=== PATIENT | female | born 1985 | race African-American/Black ===

== ENCOUNTER 2017-03-15 14:11 | Emergency (ER) | payer SELFPAY ==
[2017-03-15] MEDS ORDERED: Dexamethasone 4 mg/ml Vial ONE (14:22)
== END 2017-03-15 15:40 | disposition home or self-care (01) ==
LOC: ERS 14:11
DX: R06.2 Wheezing (principal); I10 Essential (primary) hypertension; F17.210 Nicotine dependence, cigarettes, uncomplicated; Z79.899 Other long term (current) drug therapy
CPT/HCPCS: 94640; J1100; J7620

== ENCOUNTER 2017-04-30 10:38 | Emergency (ER) | payer SELFPAY ==
[2017-04-30 11:15] LABS: Bilirubin Small (Negative); Blood, Urine Moderate (Negative); Glucose, Urine (Dipstick) Negative (Negative); Ketone, Urine Trace mg/dL (Negative); Nitrite Negative (Negative); Protein, Urine (Dipstick) > or equal to 300 mg/dL (Neg-Trace)
[2017-04-30 11:27] LABS: Bacteria/HPF 2+ HPF (None Seen); RBC/HPF 0-3 HPF (0-3)
[2017-04-30 11:28] LABS: Hyaline Casts/LPF NONE SEEN LPF (0-3 Hyaline)
[2017-04-30 11:47] LABS: #Basophils 0.1 thou/uL (0.0-0.2); #Lymphocytes 1.1 thou/uL (1.20-3.40); #Monocytes 1.1 thou/uL (0.11-0.59); #Neutrophils 6.7 thou/uL (1.40-6.50); %Basophils 0.7 % (0.0-1.0); %Monocytes 11.8 % (0.0-10.0); Hematocrit 46.5 % (36.0-47.0); Red Blood Cell (RBC) Count 4.96 mill/uL (4.20-5.40); White Blood Cell (WBC) Count 8.9 thou/uL (4.8-10.8)
[2017-04-30 12:03] LABS: ALT (SGPT) 35 U/L (8-55); AST (SGOT) 58 U/L (5-34); Alkaline Phosphatase 45 U/L (40-150); Anion Gap 16 mmol/L (10-20); BUN (Urea Nitrogen) 12 mg/dL (7.0-18.7); Bilirubin, Total 0.3 mg/dL (0.2-1.2); Calc. Creatinine Clearance 0 mL/min (70-130); Calcium 9.1 mg/dL (7.8-10.44); Carbon Dioxide 26 mmol/L (22-29); Chloride 99 mmol/L (98-107); Estimated GFR-MDRD Greater than 90; Globulin 3.4 g/dL (2.4-3.5); Protein, Total 7.8 g/dL (6.0-8.3)
[2017-04-30] MEDS ORDERED: Potassium Chloride 20 MEQ TAB ONE (12:09)
== END 2017-04-30 12:10 | disposition home or self-care (01) ==
LOC: ERS 10:38
DX: E86.0 Dehydration (principal); I10 Essential (primary) hypertension; F17.210 Nicotine dependence, cigarettes, uncomplicated; Z79.899 Other long term (current) drug therapy
CPT/HCPCS: 36415; 80053; 81003; 81015; 81025; 85025; 96361; 96374

== ENCOUNTER 2017-08-04 10:58 | Emergency (ER) | payer SELFPAY ==
[2017-08-04 11:31] LABS: #Lymphocytes 1.7 thou/uL (1.20-3.40); #Monocytes 0.5 thou/uL (0.11-0.59); #Neutrophils 4.5 thou/uL (1.40-6.50); %Basophils 0.3 % (0.0-1.0); %Eosinophils 0.3 % (0.0-10.0); %Lymphocytes 24.7 % (21.0-51.0); %Monocytes 7.2 % (0.0-10.0); %Neutrophils 67.5 % (42.0-75.0); Hemoglobin 14.2 g/dL (12.0-16.0); Mean Corpuscular HGB CONC 34.5 g/dL (32.0-36.0); Mean Corpuscular Hemoglobin 32.2 pg (27.0-31.0); Mean Corpuscular Volume 93.2 fl (81.0-99.0); Mean Platelet Volume 6.3 fL (7.4-10.4); Platelet Count 316 thou/uL (130-400); RBC Distribution Width 12.5 % (11.5-14.5); White Blood Cell (WBC) Count 6.7 thou/uL (4.8-10.8)
[2017-08-04 11:35] LABS: BHCG - Serum POSITIVE (NEGATIVE); Pregs Control Background? CLEAR/WHITE (CLR/WHITE); Pregs Control Bar Appear? YES (CONTROL BAR)
[2017-08-04 11:55] LABS: ALT (SGPT) 11 U/L (8-55); AST (SGOT) 26 U/L (5-34); Albumin 4.7 g/dL (3.5-5.0); Alkaline Phosphatase 51 U/L (40-150); Anion Gap 14 mmol/L (10-20); BUN (Urea Nitrogen) 5 mg/dL (7.0-18.7); Bilirubin, Total 0.7 mg/dL (0.2-1.2); Calc. Creatinine Clearance 0 mL/min (70-130); Calcium 9.8 mg/dL (7.8-10.44); Carbon Dioxide 21 mmol/L (22-29); Chloride 104 mmol/L (98-107); Estimated GFR-MDRD Greater than 90; Globulin 3.2 g/dL (2.4-3.5); Glucose 97 mg/dL (70-105); Lipase 80 U/L (8-78); Potassium 3.3 mmol/L (3.5-5.1); Protein, Total 7.9 g/dL (6.0-8.3); Sodium 136 mmol/L (136-145)
[2017-08-04 13:26] LABS: Bilirubin Moderate (Negative); Blood, Urine Large (Negative); Clarity CLEAR (Clear); Glucose, Urine (Dipstick) Negative (Negative); Leukocyte Small (Negative); Nitrite Negative (Negative); Protein, Urine (Dipstick) 100 mg/dL (Neg-Trace); Specific Gravity, Urine 1.028 (1.002-1.036)
[2017-08-04 13:30] LABS: Bacteria/HPF 1+ HPF (None Seen); Hyaline Casts/LPF NONE SEEN LPF (0-3 Hyaline); RBC/HPF GREATER THAN 50-TNTC HPF (0-3)
--- NOTE | 2017-08-04 14:23 | ULT ---
PELVIC ULTRASOUND: Technique: Transabdominal and endovaginal ultrasound of the pelvis performed. History: 31-year-old female with left pelvic pain. There is a positive test. FINDINGS: The HCG levels are reported at 3327. A gestational sac should be visible at this level of HCG. Images of the endometrium shows evidence of free fluid/blood in the endometrial cavity. There is no e vidence of gestational sac identified. Ovaries are identified. Color doppler and spectral analysis demonstrates flow to both ovaries. There is a 3 cm heterogeneous mass like area adjacent to the left ovary. There is a moderate amount o f free fluid/blood in the cul-de-sac. IMPRESSION: 1. No evidence of gestational sac. 2. Heterogeneous mass like area adjacent to the left ovary with free fluid in the cul-de-sac. Ectopic must be excluded. Findings relayed to the Emergency Room at the time of dictation. POS: [facility]
--- NOTE | 2017-08-04 20:11 | CON ---
DATE OF CONSULTATION: 08/04/2017 CONSULTING PHYSICIAN: Dr. Ashutosh Macario, Emergency Department. CHIEF COMPLAINT: Left lower quadrant pain. HISTORY OF PRESENT ILLNESS: This is a 31-year-old G4, P2-0-1-2 who presented to the emergency department with left lower quadrant abdominal pain. She reports that this pain started yesterday morning, described as sharp at first, but now only crampy. It is exacerbated by movement and is not relieved by anything. She has not tried anything for pain. She reports her last menstrual period was 07/02/2017. She had a small amount of vaginal bleeding yesterday requiring her to change her pad twice, but the bleeding stopped. She has had only spotting with urination today. She denies any nausea, vomiting, changes in bowel habits or urination. REVIEW OF SYSTEMS: Negative for head, eyes, ears, nose, throat, cardiovascular , respiratory, GI, , neuro, psych, musculoskeletal, skin or constitutional symptoms other than mentioned above. PAST MEDICAL HISTORY: Hypertension. PAST SURGICAL HISTORY: x2. MEDICATIONS: None. ALLERGIES: No known drug allergies. SOCIAL HISTORY: Negative for tobacco, alcohol, or drug abuse. PHYSICAL EXAMINATION: VITAL SIGNS: Blood pressure 149/104, pulse 92, respiratory rate 16, temperature 98.8, O2 saturation 100% on room air. GENERAL: Awake, alert, in no acute distress, appears comfortable. She was laughing and joking on exam. CHEST: Nonlabored. ABDOMEN: Soft, mildly tender to palpation of the lower abdomen. No guarding or rebound. No masses palpable. PELVIC: Deferred. LABORATORY DATA: HCG level 3327, hemoglobin 14.2, hematocrit 41.0. Urine contaminated with blood. IMAGING: Transvaginal ultrasound was performed by Radiology revealing no evidence of a gestational sac in the uterus. Both ovaries visible with color flow. A 3-cm heterogeneous mass-like area adjacent to left ovary with some free fluid in the cul-de-sac. The heterogeneous mass did not have an obvious gestational sac or yolk sac. There was no pole. ASSESSMENT AND PLAN: A 31-year-old G4, P2-0-1-2 with a of unknown location. Given the recent practice bulletin from [employer] adjusting the discriminatory zone from [id number], she does not yet meet that threshold for treatment. I discussed our concern for ectopic with the patient and current treatment options including waiting 48 hours for repeat hCG level versus proceeding with diagnostic laparoscopy to look at this area of concern. Since her abdominal exam was essentially unremarkable other than mild discomfort , so I feel it is not necessary to proceed with surgery at this point. The patient agrees to expectant management with repeat hCG level in 48 hours, along with a repeat abdominal exam, plus or minus ultrasound. At that point, we should have enough information to guide further treatment recommendations. I reiterated the importance of returning to the emergency department with worsening of symptoms and that rupture of an ectopic can be life threatening. She voiced understanding. Thank you for the consultation. We will continue to be available for any questions. LJ
== END 2017-08-04 16:20 | disposition home or self-care (01) ==
LOC: ERS 10:58
DX: O99.89 Other specified diseases and conditions complicating pregnancy, childbirth and the puerperium (principal); R10.32 Left lower quadrant pain; O10.911 Unspecified pre-existing hypertension complicating pregnancy, first trimester; O99.331 Smoking (tobacco) complicating pregnancy, first trimester; Z3A.01 Less than 8 weeks gestation of pregnancy
CPT/HCPCS: 36415; 76856; 80053; 81003; 81015; 83690; 84702; 84703; 85025

== ENCOUNTER 2017-08-06 09:19 | Emergency (ER) | payer SELFPAY ==
--- NOTE | 2017-08-06 10:50 | ULT ---
TRANSABDOMINAL AND TRANSVAGINAL PELVIC ULTRASOUND WITH JUÁREZ SCALE AND COLOR FLOW AND SPECTRAL DOPPLER IMAGING: Date: 08/06/17 HISTORY: Positive beta HCG. FINDINGS: Comparison made with exam dated 08/04/17. The uterus measures 7.8 x 3.7 x 5.5 cm. The endometrial thickness measures 5.0 mm. No intrauterine ge stational sac is seen. The right ovary measures 2.5 x 2.2 x 1.5 cm. The left ovary measures 3.1 x 2.5 x 2.4 cm. Flow is demo nstrated to both ovaries. Small amount of free fluid in the cul-de-sac. There is a 3.5 x 2.5 x 2.4 cm heterogeneous mass adjacent to the left adnexa adjacent to the left ova ry, which was also noted on the previous study of 08/04/17. IMPRESSION: 1. No evidence of intrauterine gestation. 2. Heterogeneous mass adjacent to the left ovary with free fluid in the cul-de-sac is again seen as on 08/04/17. Possibility of ectopic cannot be excluded. POS: [facility]
== END 2017-08-06 11:49 | disposition home or self-care (01) ==
LOC: ERS 09:19
DX: O03.4 Incomplete spontaneous abortion without complication (principal); I10 Essential (primary) hypertension; F17.210 Nicotine dependence, cigarettes, uncomplicated
CPT/HCPCS: 36415; 76856; 84702; 86900; 86901; 99282

== ENCOUNTER 2017-09-26 10:07 | Emergency (ER) | payer SELFPAY ==
[2017-09-26] MEDS ORDERED: Lidocaine 4% Cream 5 GM TUBE w/ Tegaderm ONE (10:35)
[2017-09-26] MEDS ORDERED: Bacitracin Zinc 1 Packet ONE (11:19)
--- NOTE | 2017-09-26 11:41 | CT ---
CT FACIAL BONES WITHOUT CONTRAST: HISTORY: Laceration. The patient was moving a TV and tripped over something on the floor, hit head. Hit head on glass table. Headache. COMPARISON: None. TECHNIQUE: FACE CT is performed without contrast. Reformatted images are submitted for interpretation. FINDINGS: Visualized upper cervical spine demonstrates preservation of vertebral body height. Mild reversal of lordosis noted at C5-C6. Visualized brain parenchyma is unremarkable. Bilateral ocular lenses are appropriately located. Bot h globes are intact. Retrobulbar fat is preserved. Symmetric attenuation of the optic nerves and oc ular rectus muscles. Aerodigestive tract is patent. No mucosal abnormality. Adequate aeration of the sinuses and mastoid air cells. Zygomatic arches are intact. Bilateral mandibular condyles are intact. Maxilla and mandible are unr emarkable. Sylmar fossae are symmetric. Pterygoid places are intact. On the coronal reformatted images, osteomeatal complexes are patent. Mild leftward deviation of the septum. No evidence of maxillofacial fractures. There is soft tissue swelling along the bridge of the nose. IMPRESSION: Nasal soft tissue swelling. No fractures. No radiopaque foreign body. POS: [facility]
== END 2017-09-26 11:39 | disposition home or self-care (01) ==
LOC: ERS 10:07
DX: S01.81XA Laceration without foreign body of other part of head, initial encounter (principal); I10 Essential (primary) hypertension; F17.210 Nicotine dependence, cigarettes, uncomplicated; Z79.899 Other long term (current) drug therapy; W01.110A Fall on same level from slipping, tripping and stumbling with subsequent striking against sharp glass, initial encounter
CPT/HCPCS: 12011; 70486

== ENCOUNTER 2018-05-12 10:13 | Emergency (ER) | payer SELFPAY ==
[2018-05-12 11:18] LABS: #Monocytes 0.8 thou/uL (0.11-0.59); #Neutrophils 6.2 thou/uL (1.40-6.50); %Basophils 0.5 % (0.0-1.0); %Eosinophils 0.2 % (0.0-10.0); %Lymphocytes 22.4 % (21.0-51.0); %Monocytes 8.8 % (0.0-10.0); %Neutrophils 68.1 % (42.0-75.0); Hemoglobin 13.5 g/dL (12.0-16.0); Mean Corpuscular HGB CONC 34.1 g/dL (32.0-36.0); Mean Corpuscular Hemoglobin 31.4 pg (27.0-31.0); Mean Corpuscular Volume 92.2 fL (78.0-98.0); Mean Platelet Volume 6.2 fL (7.4-10.4); Platelet Count 413 thou/uL (130-400); RBC Distribution Width 12.5 % (11.5-14.5); Red Blood Cell (RBC) Count 4.28 mill/uL (4.20-5.40); White Blood Cell (WBC) Count 9.1 thou/uL (4.8-10.8)
[2018-05-12] MEDS ORDERED: Ondansetron PF 4 MG/2 ML Vial ONE (11:35)
[2018-05-12 11:37] LABS: ALT (SGPT) 21 U/L (8-55); AST (SGOT) 31 U/L (5-34); Albumin 4.3 g/dL (3.5-5.0); Alkaline Phosphatase 45 U/L (40-150); Anion Gap 12 mmol/L (10-20); BUN (Urea Nitrogen) 9 mg/dL (7.0-18.7); Bilirubin, Total 0.4 mg/dL (0.2-1.2); Calc. Creatinine Clearance 0 mL/min (70-130); Calcium 9.9 mg/dL (7.8-10.44); Carbon Dioxide 26 mmol/L (22-29); Chloride 99 mmol/L (98-107); Estimated GFR-MDRD Greater than 90; Globulin 3.2 g/dL (2.4-3.5); Glucose 97 mg/dL (70-105); Lipase 55 U/L (8-78); Protein, Total 7.5 g/dL (6.0-8.3); Sodium 133 mmol/L (136-145)
[2018-05-12 11:57] LABS: Bilirubin Negative (Negative); Blood, Urine Negative (Negative); Clarity CLOUDY (Clear); Glucose, Urine (Dipstick) Negative (Negative); Leukocyte Trace (Negative); Nitrite Negative (Negative); Protein, Urine (Dipstick) 30 mg/dL (Neg-Trace); Specific Gravity, Urine 1.038 (1.002-1.036); Urobilinogen 0.2 mg/dL (0.2-1.0)
[2018-05-12 12:01] LABS: Bacteria/HPF Rare-Few HPF (None Seen); Hyaline Casts/LPF 0-3 HYALINE CAST LPF (0-3 Hyaline); Pathc Cast-AUWi Flag 0.87 (0-2.49); RBC/HPF 0-3 HPF (0-3); WBC/HPF 0-3 HPF (0-3)
[2018-05-12 12:02] LABS: Pregnancy Test - Urine (BHCG) POSITIVE (Negative)
[2018-05-12 12:03] LABS: Pregu Control Background? CLEAR/WHITE (CLR/WHITE); Pregu Control Bar Appear? YES (CONTROL BAR); Specific Gravity 1.038 (1.002-1.036)
[2018-05-12 12:27] LABS: BHCG - Serum POSITIVE (NEGATIVE); Pregs Control Background? CLEAR/WHITE (CLR/WHITE); Pregs Control Bar Appear? YES (CONTROL BAR)
--- NOTE | 2018-05-12 14:29 | ULT ---
FIRST TRIMESTER OBSTETRICAL ULTRASOUND: Date: 05/12/18 INDICATION: Nausea, vomiting, and cramping. COMPARISON: Prior examination dated 08/06/17. TECHNIQUE: Dubose scale, color Doppler, spectral Doppler, and M-Mode Doppler images were obtained of the pelvis vi a transabdominal and transvaginal approach. FINDINGS: There is a single, live intrauterine gestation, with pole and yolk sac identified. Cardiac acti vity is noted at 171 beats/minute. Yolk sac measured 2.8 mm. No perigestational hemorrhage is demonst rated. The crown-rump length was 2.53 cm, giving an estimated gestational age of 9 weeks and 2 days w ith estimated due date of 12/10/18. The clinical age is 7 weeks and 1 day with an estimated due date of 12/28/18. No free fluid is identified. The visualized adnexa are unremarkable. There is normal sammy w to both ovaries. IMPRESSION: Single live intrauterine gestation. POS: [facility]
== END 2018-05-12 13:34 | disposition home or self-care (01) ==
LOC: ERS 10:13
DX: O99.281 Endocrine, nutritional and metabolic diseases complicating pregnancy, first trimester (principal); E86.0 Dehydration; O21.9 Vomiting of pregnancy, unspecified; O13.1 Gestational [pregnancy-induced] hypertension without significant proteinuria, first trimester; O99.331 Smoking (tobacco) complicating pregnancy, first trimester; F17.210 Nicotine dependence, cigarettes, uncomplicated; Z3A.09 9 weeks gestation of pregnancy
CPT/HCPCS: 36415; 76856; 80053; 81003; 81015; 81025; 83690; 84702; 84703; 85025; 93005; 93976; 96361; 96374; J2405

== ENCOUNTER 2018-05-13 18:33 | Emergency (ER) | payer SELFPAY ==
[2018-05-13] MEDS ORDERED: Metoclopramide HCl 10 MG/2 ML VIAL ONE (19:31)
[2018-05-13 20:01] LABS: #Lymphocytes 1.7 thou/uL (1.20-3.40); #Neutrophils 7.6 thou/uL (1.40-6.50); %Basophils 0.1 % (0.0-1.0); %Eosinophils 0.2 % (0.0-10.0); %Lymphocytes 16.7 % (21.0-51.0); %Monocytes 9.2 % (0.0-10.0); %Neutrophils 73.8 % (42.0-75.0); Hemoglobin 12.8 g/dL (12.0-16.0); Mean Corpuscular HGB CONC 34.7 g/dL (32.0-36.0); Mean Corpuscular Hemoglobin 31.8 pg (27.0-31.0); Mean Corpuscular Volume 91.4 fL (78.0-98.0); Mean Platelet Volume 6.6 fL (7.4-10.4); Platelet Count 406 thou/uL (130-400); RBC Distribution Width 12.3 % (11.5-14.5); Red Blood Cell (RBC) Count 4.05 mill/uL (4.20-5.40); White Blood Cell (WBC) Count 10.3 thou/uL (4.8-10.8)
[2018-05-13 20:34] LABS: ALT (SGPT) 32 U/L (8-55); AST (SGOT) 42 U/L (5-34); Albumin 4.3 g/dL (3.5-5.0); Alkaline Phosphatase 51 U/L (40-150); Anion Gap 16 mmol/L (10-20); BUN (Urea Nitrogen) 10 mg/dL (7.0-18.7); Bilirubin, Total 0.4 mg/dL (0.2-1.2); Calc. Creatinine Clearance 0 mL/min (70-130); Calcium 9.6 mg/dL (7.8-10.44); Carbon Dioxide 20 mmol/L (22-29); Chloride 103 mmol/L (98-107); Estimated GFR-MDRD Greater than 90; Globulin 3.3 g/dL (2.4-3.5); Glucose 83 mg/dL (70-105); Potassium 3.6 mmol/L (3.5-5.1); Protein, Total 7.6 g/dL (6.0-8.3); Sodium 135 mmol/L (136-145)
[2018-05-13 20:42] LABS: Bilirubin Negative (Negative); Blood, Urine Negative (Negative); Clarity CLOUDY (Clear); Glucose, Urine (Dipstick) Negative (Negative); Leukocyte Small (Negative); Nitrite Negative (Negative); Protein, Urine (Dipstick) 100 mg/dL (Neg-Trace); Specific Gravity, Urine 1.038 (1.002-1.036); Urobilinogen 0.2 mg/dL (0.2-1.0); pH, Urine 7.5 (5.0-9.0)
[2018-05-13 20:43] LABS: Bacteria/HPF Rare-Few HPF (None Seen); Squamous Epithelial 21-50 HPF (0-3)
[2018-05-13 20:44] LABS: Pathc Cast-AUWi Flag 2.76 (0-2.49)
[2018-05-13 20:57] LABS: Hyaline Casts/LPF 0-3 HYALINE CAST LPF (0-3 Hyaline)
== END 2018-05-13 22:35 | disposition home or self-care (01) ==
LOC: ERS 18:33
DX: O21.9 Vomiting of pregnancy, unspecified (principal); O10.911 Unspecified pre-existing hypertension complicating pregnancy, first trimester; Z3A.09 9 weeks gestation of pregnancy; Z87.891 Personal history of nicotine dependence; Z79.899 Other long term (current) drug therapy
CPT/HCPCS: 36415; 80053; 81003; 81015; 85025; 96361; 96365; J2765

== ENCOUNTER 2018-06-29 11:55 | Emergency (ER) | payer OTHER, SELFPAY ==
[2018-06-29] MEDS ORDERED: Ondansetron ODT 4 MG TAB ONE (13:51)
== END 2018-06-29 14:27 | disposition home or self-care (01) ==
LOC: ERS 11:55
DX: R42 Dizziness and giddiness (principal); I10 Essential (primary) hypertension; Z87.891 Personal history of nicotine dependence
CPT/HCPCS: 36416; 99284; Q0162

== ENCOUNTER 2018-07-20 11:06 | Emergency (ER) | payer OTHER ==
[2018-07-20] MEDS ORDERED: Acetaminophen 500 MG TAB ONE (11:19)
--- NOTE | 2018-07-20 12:02 | CT ---
CT BRAIN WITHOUT CONTRAST: History: 52-year-old female with syncope and collapse, headache, dizziness. FINDINGS: No evidence of infract, hemorrhage, midline shift, or abnormal extraaxial fluid collections are seen. The ventricular size is normal and the basal cisterns are patent. The bony calvarium is intact. Ther e is a small polyp versus mucous retention cyst in the left maxillary sinus. IMPRESSION: No CT evidence of acute intracranial process. POS: [facility]
[2018-07-20 12:04] LABS: #Eosinphils 0.2 thou/uL (0.0-0.7); #Lymphocytes 2.1 thou/uL (1.20-3.40); #Neutrophils 7.4 thou/uL (1.40-6.50); %Basophils 0.4 % (0.0-1.0); %Eosinophils 1.9 % (0.0-10.0); %Lymphocytes 19.4 % (21.0-51.0); %Monocytes 9.5 % (0.0-10.0); %Neutrophils 68.8 % (42.0-75.0); Hemoglobin 10.5 g/dL (12.0-16.0); Mean Corpuscular HGB CONC 33.1 g/dL (32.0-36.0); Mean Corpuscular Hemoglobin 30.6 pg (27.0-31.0); Mean Corpuscular Volume 92.6 fL (78.0-98.0); Mean Platelet Volume 6.8 fL (7.4-10.4); Platelet Count 335 thou/uL (130-400); Red Blood Cell (RBC) Count 3.42 mill/uL (4.20-5.40); White Blood Cell (WBC) Count 10.8 thou/uL (4.8-10.8)
[2018-07-20 12:27] LABS: ALT (SGPT) 67 U/L (8-55); AST (SGOT) 65 U/L (5-34); Albumin 3.2 g/dL (3.5-5.0); Alkaline Phosphatase 57 U/L (40-150); Anion Gap 7 mmol/L (10-20); BUN (Urea Nitrogen) 6 mg/dL (7.0-18.7); Bilirubin, Total 0.2 mg/dL (0.2-1.2); Calc. Creatinine Clearance 0 mL/min (70-130); Calcium 8.6 mg/dL (7.8-10.44); Carbon Dioxide 28 mmol/L (22-29); Chloride 105 mmol/L (98-107); Estimated GFR-MDRD Greater than 90; Globulin 2.9 g/dL (2.4-3.5); Glucose 82 mg/dL (70-105); Potassium 3.5 mmol/L (3.5-5.1); Protein, Total 6.1 g/dL (6.0-8.3); Sodium 136 mmol/L (136-145)
[2018-07-20 12:46] LABS: Bilirubin Negative (Negative); Blood, Urine Negative (Negative); Clarity CLOUDY (Clear); Glucose, Urine (Dipstick) Negative (Negative); Leukocyte Negative (Negative); Nitrite Negative (Negative); Protein, Urine (Dipstick) Negative (Neg-Trace); Specific Gravity, Urine 1.011 (1.002-1.036); Urobilinogen 0.2 mg/dL (0.2-1.0); pH, Urine 7.5 (5.0-9.0)
== END 2018-07-20 14:13 | disposition home or self-care (01) ==
LOC: ERS 11:06
DX: R55 Syncope and collapse (principal); I10 Essential (primary) hypertension
CPT/HCPCS: 36415; 70450; 80053; 81003; 84484; 85025; 93005; 96360

== ENCOUNTER 2018-08-23 09:28 | Day surgery (SDC) | payer OTHER ==
[2018-08-23 10:16] VITALS: BMI 30.2
[2018-08-23 11:39] LABS: Bilirubin Negative (Negative); Blood, Urine Negative (Negative); Clarity CLEAR (Clear); Glucose, Urine (Dipstick) Negative (Negative); Leukocyte Negative (Negative); Nitrite Negative (Negative); Protein, Urine (Dipstick) Negative (Neg-Trace); Specific Gravity, Urine 1.019 (1.002-1.036); pH, Urine 7.5 (5.0-9.0)
[2018-08-23 11:43] LABS: Bacteria/HPF Rare-Few HPF (None Seen); Hyaline Casts/LPF 0-3 HYALINE CAST LPF (0-3 Hyaline); RBC/HPF 0-3 HPF (0-3); WBC/HPF 0-3 HPF (0-3)
[2018-08-23 11:44] LABS: Urine Culture Reflex No No
== END 2018-08-23 16:27 | disposition home health service (06) ==
LOC: L&D/OP 09:28
PROVIDERS: ATTEND Obstetrics & Gynecology
DX: O26.859 Spotting complicating pregnancy, unspecified trimester (principal); O10.919 Unspecified pre-existing hypertension complicating pregnancy, unspecified trimester; O99.89 Other specified diseases and conditions complicating pregnancy, childbirth and the puerperium; R10.2 Pelvic and perineal pain; Z98.891 History of uterine scar from previous surgery
CPT/HCPCS: 81001; 87480; 87510; 87660

== ENCOUNTER 2018-10-12 09:11 | Day surgery (SDC) | payer OTHER ==
--- NOTE | 2018-10-12 09:43 | PDOC.FPROB ---
FMR OB H&P: HPI - History of Present Illness Chief Complaint: requires iron infusion Indentification: 32 y/o @ 31.4 WGA by 9.5 wk [place] presents for iron infusion History of Present Illness: Patient reports a little headache today. Denies any vaginal bleeding, vaginal d/ c, LOF, ctx. Endorses movement. She has not started taking iron tablets yet, but is going to pick them up today from the pharmacy. She reports she is fasting this AM for her 3 hour GTT as she failed her 1 hour. Primary Care Physician: Dr. 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 Denies any tobacco, EtOH , drug use during my exam. - Family History Family History: Family hx of HTN FMR OB H&P: Medications - Current Home Medications: Medication Instructions Recorded Confirmed Type Aspirin [[place] Aspirin EC] 1 tab PO DAILY 08/23/18 08/23/18 History metroNIDAZOLE [Flagyl] 500 mg PO BID #14 tab 08/23/18 Rx Allergies/Adverse Reactions: Allergies Allergy/AdvReac Type Severity Reaction Status Date / Time No Known Allergies Allergy Verified 10/12/18 15:46 FMR OB H&P: ROS - Review of Systems General: denies: fever/chills, night sweats ENT: denies: nasal congestion, rhinorrhea Cardiovascular: denies: chest pain, edema Respiratory: denies: cough, shortness of breath Gastrointestinal: denies: abdominal pain, cramping, diarrhea Genitourinary (Female): denies: dysuria, hematuria Musculoskeletal: denies: pain, tenderness Neurologic: denies: numbness, weakness Integumentary: denies: itching, rash Endocrine: denies: cold intolerance, heat intolerance Psychological: denies: depression, anxiety FMR OB H&P: Vital Signs - Maternal Vital signs: HR 100, O2 sat 100% on RA, 123/94 BP - Heart Tones Baseline: 130 Variability: moderate Acceleration: present Deceleration: absent Milbank contractions every: none FMR OB H&P: Physical Exam - Physical Exam General: NAD, awake, alert and oriented HEENT: EOMI, MMM, grossly normal vision, grossly normal hearing Neck: supple, no LAD Heart: RRR, normal S1/S2, no murmurs/rubs/gallops, pulses present, no edema General: CTAB, no respiratory distress, good air movement, no rales/rhonchi, no wheezing Abdomen: soft, gravid, non-tender, bowel sound present Musculoskeletal: normal gait and station Neurological: no focal deficit Skin: good tugor, capillary refill <2 seconds Lymphatic: no unusual bruising or bleeding, no purpura Psychiatric: intact recent and remote memory, good judgement and insight FMR OB H&P: A/P - Problem List (1) Iron deficiency anemia during Status: Acute Code(s): O99.019 - ANEMIA COMPLICATING , UNSPECIFIED TRIMESTER; D50.9 - IRON DEFICIENCY ANEMIA, UNSPECIFIED (2) Chronic hypertension affecting Status: Acute Code(s): O10.919 - UNSP PRE-EXISTING HTN COMP , UNSP TRIMESTER (3) Glucose intolerance Status: Acute Code(s): E74.39 - OTHER DISORDERS OF INTESTINAL CARBOHYDRATE ABSORPTION Discussion: Date/Time: 10/12/18 0941 Iron deficiency anemia - ordered ferritin, iron, and TIBC - plan for iron transfusion Glucose intolerance - elevated 1hr GTT, 3 hr GTT completed this am at outside lab as concern for the effect of sucrose in transfusion interfering with test validity. Results unknown from this. cHTN - with history of pre-e - BP 123/94 here Dispo: plan for iron transfusion with discharge after completion This H&P was discussed with Dr. Conti who agree with the above documentation and plan. Addendum - Attending - Attending Attestation Date/Time: 10/13/1847 I personally evaluated the patient and discussed the management with Dr. Mclean. I agree with the History, Examination, Assessment and Plan documented above with any addition or exceptions noted below.
[2018-10-12] MEDS ORDERED: Acetaminophen 500 MG TAB PO SCH (10:15)
[2018-10-12] MEDS ORDERED: Iron Sucrose Complex 500 MG in Sodium Chloride 0.9% 250 ML 250 ML IVPB SCH (10:15)
[2018-10-12 14:03] LABS: Ferritin 6.39 ng/mL (10-291); Iron 25 ug/dL (50-170); Iron Binding Capacity, Total 588 mcg/dL (265-497)
[2018-10-12 14:05] LABS: HIV (1/2) Antibody/Antigen Non-Reactive (NonReactive); HIV 1/2 INDEX 0.11 S/CO (<1.00)
[2018-10-12 14:06] LABS: Syphilis Antibody Nonreactive (Nonreactive); Syphilis Antibody Index 0.02 S/CO (<1.00 Non-Reactive)
== END 2018-10-12 21:00 | disposition home or self-care (01) ==
LOC: L&D/OP 09:11
PROVIDERS: ATTEND Family Medicine
DX: O99.013 Anemia complicating pregnancy, third trimester (principal); D50.9 Iron deficiency anemia, unspecified; O10.913 Unspecified pre-existing hypertension complicating pregnancy, third trimester; O99.283 Endocrine, nutritional and metabolic diseases complicating pregnancy, third trimester; E74.39 Other disorders of intestinal carbohydrate absorption; Z3A.31 31 weeks gestation of pregnancy; Z79.82 Long term (current) use of aspirin
CPT/HCPCS: 36416; 82728; 82951; 82952; 83540; 83550; 86780; 87389; 96365; 96366; 99282; J1756; J7050

== ENCOUNTER 2018-10-22 11:44 | Day surgery (SDC) | payer OTHER ==
[2018-10-22 12:05] VITALS: BMI 31.8
[2018-10-22] MEDS ORDERED: Calcium Gluc 4.6 MEQ/10 ML (100 MG/ML) SLOW IVP PRN (12:40)
[2018-10-22] MEDS ORDERED: hydrALAZINE 20 MG/ML VIAL SLOW IVP PRN (12:48)
--- NOTE | 2018-10-22 12:52 | PDOC.FPROB ---
FMR OB H&P: HPI - History of Present Illness Chief Complaint: headache and spots in vision Indentification: 32yo @ 33.0w by 9.5w US presents for elevated BP in clinic History of Present Illness: Patient reports she passed out at the top of her stairs yesterday and woke up on the ground at the bottom of the stairs. Since that time she has had a persistent frontal headache along with black spots in her vision. Seen in clinic earlier today and found to be HTN >140/100 mmHg. At that time she also reported baby was moving less than normal. She denies any CP, SOB, [place], vaginal bleeding, vaginal discharge, LOF, ctx. Primary Care Physician: ZARA Oconnor FMR OB H&P: Current - Care : 5 Para: 2021 Gestational age: 33.0 Due date: 12/10/18 Dating Criteria: 9w5d sono - OB Labs Blood type: B RH: positive Antibody Screen: negative HIV: negative RPR: negative HepBsAg: negative Rubella: immune Urine drug screen: positive (cannabinoids) Gonorrhea: negative Chlamydia: negative Pap Smear: NILM, HR-HPV positive 1 hour gtt: 157 3 hour GTT: not done A1c: 5.1 GBS: unknown FMR OB H&P: History - Past Medical History PMH: cHTN iron deficiency anemia s/p iron infusion - OB History OB History: 2 prior c/s for Pre-E 2 SABs - BUSINESS SUPPORT History BUSINESS SUPPORT History: HR-HPV positive on pap - Surgical History Sx History: c/s x 2 - Social History Social History: denies tobacco, alcohol, drugs - Family History Family History: HTN FMR OB H&P: Medications - Current Home Medications: Medication Instructions Recorded Confirmed Type Aspirin [[place] Aspirin EC] 1 tab PO DAILY 08/23/18 10/22/18 History Allergies/Adverse Reactions: Allergies Allergy/AdvReac Type Severity Reaction Status Date / Time No Known Allergies Allergy Verified 10/12/18 15:46 FMR OB H&P: ROS - Review of Systems General: denies: fever/chills, night sweats Eyes: reports: vision changes, scotomas ENT: denies: nasal congestion, rhinorrhea Cardiovascular: denies: chest pain, palpitation Respiratory: denies: cough, congestion, shortness of breath Gastrointestinal: denies: abdominal pain, cramping, diarrhea Genitourinary (Female): denies: dysuria, hematuria Musculoskeletal: denies: stiffness, tenderness Neurologic: reports: headache. denies: numbness, syncope Integumentary: denies: itching, rash Psychological: denies: depression, anxiety FMR OB H&P: Vital Signs - Maternal Vital signs: 113/79 mmHg 102 bpm 99% on RA - Heart Tones Baseline: 130 Variability: moderate Acceleration: absent Deceleration: absent Category: category 1 Clyman contractions every: no ctx FMR OB H&P: Physical Exam - Physical Exam General: NAD, awake, alert and oriented HEENT: normocephalic and atraumatic, PERRLA, EOMI, MMM Neck: supple Chest: non-tender to palpation Heart: RRR, normal S1/S2 General: CTAB, no respiratory distress Abdomen: soft, gravid, non-tender Neurological: cranial nerves II through XII intact Skin: no rash, good tugor Psychiatric: intact recent and remote memory FMR OB H&P: A/P - Problem List (1) Chronic hypertension affecting Current Visit: No Status: Acute Code(s): O10.919 - UNSP PRE-EXISTING HTN COMP , UNSP TRIMESTER Assessment and Plan: -pressures have improved since being triaged; PRN medications ordered -BPP ordered due to decreased movement -f/u PreE labs (2) Iron deficiency anemia during Current Visit: No Status: Acute Code(s): O99.019 - ANEMIA COMPLICATING , UNSPECIFIED TRIMESTER; D50.9 - IRON DEFICIENCY ANEMIA, UNSPECIFIED Assessment and Plan: -recheck with CBC -s/p iron infusion this month Discussion: Date/Time: 10/22/18 1250 This H&P was discussed with [] and [] who agree with the above documentation and plan.
--- NOTE | 2018-10-22 13:28 | ULT ---
Exam: Nonstress biophysical profile COMPARISON: None HISTORY: Preeclampsia FINDINGS: Single intrauterine gestation. Vertex presentation. Shadowing limits evaluation of the lower uterine segment heart tones with a rate of 140-144 bpm Amniotic fluid index is 5 cm Nonstress biophysical profile: tone 2 breathing 2 movements 2 Amniotic fluid 2 Total score 8 out of 8 IMPRESSION: Nonstress biophysical profile with a total score is 8 out of 8. Amniotic fluid index of 5 cm Results of study were given to the nurse Anali by the rubber stamp dies inspector on 10/22/2018 at the completion of t he exam
[2018-10-22] MEDS ORDERED: Acetaminophen 325 MG TAB PO PRN (13:54)
[2018-10-22 14:57] LABS: Creatinine, Urine 144.26 mg/dL (47-110)
[2018-10-22 14:59] LABS: #Eosinphils 0.1 thou/uL (0.0-0.7); #Lymphocytes 1.9 thou/uL (1.20-3.40); #Monocytes 0.9 thou/uL (0.11-0.59); #Neutrophils 5.1 thou/uL (1.40-6.50); %Basophils 0.3 % (0.0-1.0); %Eosinophils 1.8 % (0.0-10.0); %Lymphocytes 23.1 % (21.0-51.0); %Monocytes 11.4 % (0.0-10.0); %Neutrophils 63.4 % (42.0-75.0); Mean Corpuscular HGB CONC 32.3 g/dL (32.0-36.0); Mean Corpuscular Hemoglobin 27.4 pg (27.0-31.0); Mean Platelet Volume 8.3 fL (7.4-10.4); Platelet Count 267 thou/uL (130-400); RBC Distribution Width 19.4 % (11.5-14.5); Red Blood Cell (RBC) Count 3.63 mill/uL (4.20-5.40); White Blood Cell (WBC) Count 8.1 thou/uL (4.8-10.8)
[2018-10-22 15:15] LABS: ALT (SGPT) 20 U/L (8-55); AST (SGOT) 34 U/L (5-34); Albumin 3.2 g/dL (3.5-5.0); Alkaline Phosphatase 112 U/L (40-150); Anion Gap 14 mmol/L (10-20); BUN (Urea Nitrogen) Less than 4 mg/dL (7.0-18.7); Bilirubin, Total 0.3 mg/dL (0.2-1.2); Calc. Creatinine Clearance 160 mL/min (70-130); Calcium 8.9 mg/dL (7.8-10.44); Carbon Dioxide 23 mmol/L (22-29); Chloride 104 mmol/L (98-107); Estimated GFR-MDRD Greater than 90; Globulin 3.1 g/dL (2.4-3.5); Glucose 79 mg/dL (70-105); Potassium 3.6 mmol/L (3.5-5.1); Protein, Total 6.3 g/dL (6.0-8.3); Sodium 137 mmol/L (136-145)
--- NOTE | 2018-10-22 15:39 | PDOC.EVN ---
Event Note - Event Note Event Note: Patient doing well at this time. Headache and vision have improved. CBC significant for a hemoglobin of 10. No thrombocytopenia. BUN/Cr and LFT's normal. Urine protein/creatinine of 0.2. BPP 8/8 with appropriate OPAL. Blood pressures remain below 140/90 mmHg. Will discharge at this time with close f/u at [facility]. Continue ASA.
== END 2018-10-22 15:50 | disposition home health service (06) ==
LOC: L&D/OP 11:44
PROVIDERS: ATTEND Obstetrics & Gynecology
DX: O99.89 Other specified diseases and conditions complicating pregnancy, childbirth and the puerperium (principal); R51 Headache; H43.399 Other vitreous opacities, unspecified eye; O10.913 Unspecified pre-existing hypertension complicating pregnancy, third trimester; O99.013 Anemia complicating pregnancy, third trimester; D50.9 Iron deficiency anemia, unspecified; Z3A.33 33 weeks gestation of pregnancy; Z79.82 Long term (current) use of aspirin
CPT/HCPCS: 36415; 76819; 80053; 81003; 82570; 84156; 85025; 99283

== ENCOUNTER 2018-10-26 16:47 | Observation (INO) | payer OTHER ==
[2018-10-26 17:24] VITALS: BMI 31.8
--- NOTE | 2018-10-26 18:59 | PDOC.LDHP ---
Labor and Delivery H&P HPI: 33 yo at 33.4 by 1Marika niño sent to L&D due to concern for preelampsia. Has hx of cHTN in which she has previously been on HCTZ. Today in clinic had reported BP 147/90s and headache and block spots in her vision which started yesterday (has not taken any meds). She denies chest pain, worsening of lower extremity edema, SOB. Prior two pregnancies complicated by preE, babies delivered at 38 weeks via C/S. She reports her home BPs are 140s/90s, but per clinic records has not been compliant with bringing logs. Says she's been taking ASA daily but clinic notes state non compliance with this. No clinical sxs prior to headache onset yesterday. Endorses FM, denies LOF, VB. Had VD that is new. No dysuria. Current gestational age (weeks): 33 (33.4) Due date: 12/10/18 Dating criteria: last menstrual period, first trimester ultrasound Grav: 5 Para: 2 (2021) OB History Details: prior two complicated by preE with term deliveryat 38 weeks via C/S Current complications: other (cHTN) Current medications: pre- vitamins, iron, other (ASA) Previous surgical history: low tranverse CS Allergies/Adverse Reactions: Allergies Allergy/AdvReac Type Severity Reaction Status Date / Time No Known Allergies Allergy Verified 10/12/18 15:46 Social history: none - Physical Exam Abnormal vital signs: elevated DBP abd SBP General: NAD, resting Heart: RRR Lungs: CTAB Abdomen: NTTP FHT: category 1 - OB Labs Blood type: B RH: positive Antibody Screen: negative HIV: negative RPR: negative HEPSAg: negative GBS: unknown Urine drug screen: positive (cannbinoids) Rubella: immune - Plan Plan: observation in L&D -: 33 yo at 33.4 by 1Marika niño with cHTN here for preE rule out sIUP, pre term -betamethasone x2 -no severe range blood pressure, ranging 140s/90s with high SBP 142 and DBP 110 -headache, give 1g tylneol now -FHT: reactive reassuring, no CTX, continue BP & monitoring for few hours -GBS swab -admit to observe blood pressure cHTN with concern for preE -last pr/cr ratio .11 back in June 2018 -CBC, CMP, 24 hour urine protein, uric acid -blood pressure monitoring high risk HPV -f/u outpatient hx of cannabinoid use -seen on UDS on chart, pt. denies -will obtain UDS here Vaginal discharge -GCC & VP3, treat as indicated DVT ppx: SCDs PCP: Anastasia Discussed with Dr. Conti Addendum - Attending - Attending Attestation Date/Time: 10/26/182031 I personally evaluated the patient and discussed the management with Dr. Rabago I agree with the History, Examination, Assessment and Plan documented above with any addition or exceptions noted below. 33 yo with chronic HTN at 33.4 sent from [facility] from mild range blood pressures, DOHERTY with visual changes. Pt reports the DOHERTY/vision changes has been ongoing for past day. Has not taken tylenol. She reports similar episodes with DOHERTY and visual changes during this . H/O preeclampsia with both pregnancies. Chronic HTN, r/o superimposed preeclampsia -Labs reassuring at this time -24hr urine protein collection and serial blood pressures -Betamethasone x 2 for lung maturity -Proceed with delivery if evidence of superimposed preeclampsia
[2018-10-26] MEDS ORDERED: Acetaminophen 500 MG TAB PO SCH (19:00)
[2018-10-26] MEDS ORDERED: hydrALAZINE 20 MG/ML VIAL SLOW IVP PRN (19:05)
[2018-10-26] MEDS ORDERED: Promethazine HCl 25 MG/ML VIAL IM PRN (19:05)
[2018-10-26] MEDS ORDERED: Ondansetron PF 4 MG/2 ML Vial IVP PRN (19:05)
[2018-10-26 19:53] LABS: #Eosinphils 0.2 thou/uL (0.0-0.7); #Lymphocytes 2.4 thou/uL (1.20-3.40); #Neutrophils 5.6 thou/uL (1.40-6.50); %Basophils 0.3 % (0.0-1.0); %Eosinophils 2.5 % (0.0-10.0); %Lymphocytes 25.7 % (21.0-51.0); %Monocytes 10.4 % (0.0-10.0); %Neutrophils 61.1 % (42.0-75.0); Hemoglobin 10.4 g/dL (12.0-16.0); Mean Corpuscular HGB CONC 32.6 g/dL (32.0-36.0); Mean Corpuscular Hemoglobin 27.8 pg (27.0-31.0); Mean Corpuscular Volume 85.2 fL (78.0-98.0); Mean Platelet Volume 8.4 fL (7.4-10.4); Platelet Count 298 thou/uL (130-400); RBC Distribution Width 20.5 % (11.5-14.5); Red Blood Cell (RBC) Count 3.75 mill/uL (4.20-5.40); White Blood Cell (WBC) Count 9.2 thou/uL (4.8-10.8)
[2018-10-26] MEDS: Betamet Acet/Betamet Na Ph 30 MG/5 ML VIAL IM SCH (20:01)
[2018-10-26 20:19] LABS: ALT (SGPT) 15 U/L (8-55); AST (SGOT) 29 U/L (5-34); Albumin 3.4 g/dL (3.5-5.0); Alkaline Phosphatase 117 U/L (40-150); Anion Gap 13 mmol/L (10-20); BUN (Urea Nitrogen) 5 mg/dL (7.0-18.7); Bilirubin, Total 0.3 mg/dL (0.2-1.2); Calc. Creatinine Clearance 151 mL/min (70-130); Calcium 9.2 mg/dL (7.8-10.44); Carbon Dioxide 23 mmol/L (22-29); Chloride 104 mmol/L (98-107); Estimated GFR-MDRD Greater than 90; Globulin 3.2 g/dL (2.4-3.5); Glucose 78 mg/dL (70-105); Potassium 3.8 mmol/L (3.5-5.1); Protein, Total 6.6 g/dL (6.0-8.3); Sodium 136 mmol/L (136-145); Uric Acid 4.4 mg/dL (2.6-6.0)
[2018-10-26 20:32] LABS: Syphilis Antibody Nonreactive (Nonreactive); Syphilis Antibody Index 0.02 S/CO (<1.00 Non-Reactive)
[2018-10-26 20:33] LABS: HBSAg Index 0.26 S/CO (0-0.99); Hep B Surf Ag Non-Reactive S/CO (NonReactive)
--- NOTE | 2018-10-26 22:33 | PDOC.EVN ---
Event Note - Event Note Event Note: Blood pressures reviewed and pt noted to have BP of 160/92. Pt and RN report she was laying on the cuff when it went off. Repeat 133/80. Pt reports DOHERTY has resolved at this time. Continue monitoring
[2018-10-27] MEDS ORDERED: Famotidine 20 MG TAB PO SCH (03:15)
[2018-10-27] MEDS ORDERED: Acetaminophen 500 MG TAB PO SCH (03:15)
--- NOTE | 2018-10-27 07:49 | PDOC.LDPN ---
Labor & Delivery Progress Note - Subjective Subjective: comfortable (33 yo at 33.5 by 1T [place] with cHTN here for preE rule out. BP controlled overnight. Still complains of mild headache.) - Objective Vital signs reviewed and normal: yes General: NAD, resting Uterine fundus: non tender - Assessment (1) Chronic hypertension affecting Code(s): O10.919 - UNSP PRE-EXISTING HTN COMP , UNSP TRIMESTER Current Visit: No Status: Acute (2) Iron deficiency anemia during Code(s): O99.019 - ANEMIA COMPLICATING , UNSPECIFIED TRIMESTER; D50.9 - IRON DEFICIENCY ANEMIA, UNSPECIFIED Current Visit: No Status: Acute (3) Trichomonosis Current Visit: Yes Status: Acute (4) Bernadette vaginitis Code(s): B37.3 - CANDIDIASIS OF VULVA AND VAGINA Current Visit: Yes Status: Acute Plan: continue plan of care -: 33 yo at 33.5 by 1T [place] with cHTN here for preE rule out sIUP, pre term - betamethasone x2 - no severe range blood pressures - headache, given Tylenol - FHT: NST Qshift - GBS swab pending cHTN with concern for preE - last pr/cr ratio .11 back in June 2018 - 24 hour urine protein - blood pressure monitoring - no PRN given hx of cannabinoid use - seen on UDS on chart, pt. denies - UDS pending Vaginal discharge - GCC pending - Trich and Bernadette positive, continue treatment Disposition: Stable, patient likely stable for transfer to for continued monitoring and discharge tomorrow. Addendum - Attending - Attending Attestation Date/Time: 10/27/18 0547 I personally evaluated the patient and discussed the management with Dr. Lozano. I agree with the History, Examination, Assessment and Plan documented above with any addition or exceptions noted below. Resident tells me headache/scotoma was gone this AM, but returned on rounds. Will try reglan/benadryl. She has had a frontal, throbbing headache for most of her and she feels this is no different. On exam RRR s M, CTAB s w/ r/r, no edema, DTRs 2+, no clonus. Await 24h urine Complete steroid course Induction if indicated Likely BPP today
[2018-10-27] MEDS: Famotidine 20 MG TAB PO SCH ×2 (09:20→20:43)
[2018-10-27] MEDS: metroNIDAZOLE 500 MG TAB PO SCH ×2 (09:22→20:43)
[2018-10-27] MEDS: Clotrimazole 2% 3 Day Vag Cr 22.2 GM TUBE VAG SCH (09:46)
[2018-10-27] MEDS ORDERED: Metoclopramide HCl 10 MG/2 ML VIAL IVP SCH (11:00)
[2018-10-27] MEDS ORDERED: diphenhydrAMINE 50 MG/ML VIAL IVP SCH (11:00)
--- NOTE | 2018-10-27 15:15 | ULT ---
EXAM: US Biophysical Profile PROVIDED CLINICAL HISTORY: Positive . Follow-up biophysical profile. COMPARISON: 10/22/2018 FINDINGS: Single intrauterine gestation in cephalic presentation is again present. Cardiac Doppler demonstrates heart tones with a heart rate of 144 bpm. Placenta is located anteriorly without evidence of placenta previa. Amniotic fluid index of 9 cm is calculated. Amniotic fluid index on the prior exam was calculated at 5 cm. The cervix is obscured due to shadowing from the head. Nonstress biophysical profile: tone 2 breathing 2 movements 2 Amniotic fluid volume 2 IMPRESSION: 1. A nonstress total biophysical profile score of 8 out of 8 is obtained. 2. Amniotic fluid index is calculated at 9 cm. 3. Single intrauterine gestation in cephalic presentation with heart tones documented.
[2018-10-27 19:08] LABS: Urine Total Volume 1450 mL (600-1600)
[2018-10-27 19:31] LABS: Amphetamine Not Detected (NotDetected); Barbiturates Screen Not Detected (NotDetected); Benzodiazepine Screen Not Detected (NotDetected); Cocaine Metabolite Screen Not Detected (NotDetected); Medtox Reader # READER 4; Methadone Not Detected (NotDetected); Methamphetamine Not Detected (NotDetected); Opiate Screen Not Detected (NotDetected); Phencyclidine (PCP) Not Detected (NotDetected); THC/Cannabinoid Screen Not Detected (NotDetected); Tricyclic Screen Not Detected (NotDetected)
[2018-10-27 19:32] LABS: Medtox Control Line Valid? VALID (VALID); Oxycodone Screen Not Detected (NotDetected)
[2018-10-27 19:36] LABS: Protein - 24 Hr 218 mg/24 hr (Less than 300); Protein, Urine 15 mg/dL (1-14)
[2018-10-27] MEDS: Betamet Acet/Betamet Na Ph 30 MG/5 ML VIAL IM SCH (20:43)
--- NOTE | 2018-10-27 21:52 | PDOC.EVN ---
Event Note - Event Note Event Note: Discussed with patient results of lab. Would like to keep overnight to continue monitor BPs due to concern with persistent headaches and elevated BPs-she agreed to plan. Patient reveals she has had two syncopal episodes during this . No prior cardiac w/u. Will obtain ekg and TTE. Also would like to discuss with OBGYN specialists in regards to delivery plan due to persistent headaches unresolved with tylenol, benadryl, reglan. Will continue to monitor headaches.
[2018-10-27] MEDS ORDERED: diphenhydrAMINE 50 MG/ML VIAL IVP PRN (22:09)
[2018-10-27] MEDS ORDERED: Metoclopramide HCl 10 MG/2 ML VIAL IVP PRN (22:11)
[2018-10-27] MEDS ORDERED: Fioricet 325/50/40 mg Tablet PO PRN (22:15)
[2018-10-27] MEDS ORDERED: Lactated Ringer's 1,000 ML IV SCH (22:15)
[2018-10-28] MEDS ORDERED: diphenhydrAMINE 50 MG/ML VIAL IVP PRN (03:41)
--- NOTE | 2018-10-28 08:42 | PDOC.LDPN ---
Labor & Delivery Progress Note - Subjective Subjective: comfortable (Patient reports headache is now resolved. She otherwise if feeling well. Denies swelling, abdominal pain, or vision changes. No other complaints. ) - Objective Vital signs reviewed and normal: yes General: NAD Uterine fundus: non tender - Assessment (1) Chronic hypertension affecting Code(s): O10.919 - UNSP PRE-EXISTING HTN COMP , UNSP TRIMESTER Current Visit: No Status: Acute (2) Iron deficiency anemia during Code(s): O99.019 - ANEMIA COMPLICATING , UNSPECIFIED TRIMESTER; D50.9 - IRON DEFICIENCY ANEMIA, UNSPECIFIED Current Visit: No Status: Acute (3) Trichomonosis Current Visit: Yes Status: Acute (4) Bernadette vaginitis Code(s): B37.3 - CANDIDIASIS OF VULVA AND VAGINA Current Visit: Yes Status: Acute Plan: continue plan of care -: 33 yo at 33.6 by 1T [place] with cHTN here for preE rule out sIUP, pre term - betamethasone x2 - no severe range blood pressures - headache resolved with Fiorcet, Benadryl and Reglan x3 - FHT: NST Qshift pending - GBS swab pending - BPP ordered for this AM cHTN with concern for preE - last pr/cr ratio .11 back in June 2018 - 24 hour urine protein WNL - blood pressure monitoring -> No severe range BP - no PRN given - ECHO and EKG ordered today to rule out cardiac causes - BNP WNL hx of cannabinoid use - seen on UDS on chart, pt. denies - UDS negative Vaginal discharge - GCC pending - Trich and Bernadette positive, continue treatment Disposition: Stable, after BPP and ECHO completed if headache remains resolved patient likely stable for discharge. Addendum - Attending - Attending Attestation Date/Time: 10/28/18 8414 I personally evaluated the patient and discussed the management with Dr. Lozano. I agree with the History, Examination, Assessment and Plan documented above with any addition or exceptions noted below. Resolved headache/vision changes. Continue syncope workup from previous. If BPP/NST and TTE reassuring plan on discharge.
--- NOTE | 2018-10-28 08:46 | CON ---
DATE OF CONSULTATION: 10/27/2018 PRIMARY OB: [facility]. CHIEF COMPLAINT: Headache in the presence of chronic hypertension. HISTORY OF PRESENT ILLNESS: The patient is a 33-year-old, G5, P2, female with an intrauterine at 33 weeks and 4 days, who is seen in clinic and was transferred to the hospital for concerns of preeclampsia. The patient does have a past medical history of chronic hypertension and has been reporting blood pressures up to the 140s/90s at home. She also in clinic had a blood pressure of 147/90, was reporting of a headache that began on the day of admission. She reports this headache is unilateral on her right side, throbbing at times. She denies any nausea. Denies any sound or light sensitivity. She does report spotting. Her preeclamptic workup was negative for any signs of significant proteinuria, elevated creatinine, elevated LFTs, or thrombocytopenia. When I came, the patient had received one dose of Benadryl and Reglan in an attempt to address the potential migraine and without success and I was asked to come and evaluate her at that point. In our conversation, the patient reported that her headache that she has never had headaches like this before. She reports that more of a nuisance than anything very painful. She reports that the headache is unilateral and again denies light sensitivity, sound sensitivity, or nausea. She does report again pulsing of the right side of her muslim at times. The patient, in reviewing her blood pressures, have remained in the normal to mild range. Headaches do not seem to be associated with any spikes in her blood pressure. The patient denies any falls or trauma, any chest pain or shortness of breath. She does report syncopal episodes that occurred twice, one time associated with getting up and moving, the other time associated with standing while taking orders. The patient reports that she also at times gets up and feels very lightheaded to where she has to sit down. My understanding is the primary care team has ordered an echocardiogram for evaluation of the syncopal episodes. The patient also denies any unilateral weakness. She denies any other sensory or motor deficits. PAST MEDICAL HISTORY: Negative. PAST SURGICAL HISTORY: She has had 2 prior C-sections. ALLERGIES: NO KNOWN DRUG ALLERGIES. MEDICATIONS: 1. vitamins. 2. Iron. 3. Daily aspirin. OB LABS: Blood type is B positive. Antibody screen is negative. HIV is negative. RPR is negative. Hepatitis B surface antigen is negative. Her urine drug screen is positive for cannabinoids and she is rubella immune. The patient has received two doses of betamethasone. REVIEW OF SYSTEMS: Per HPI. PHYSICAL EXAMINATION: VITAL SIGNS: Blood pressure 132/96, pulse of 103, temperature 98.5, and respiratory rate of 18. GENERAL: She appears to be in no acute distress. She is alert and oriented, cooperative and pleasant to interact with. HEENT: Head is normocephalic, atraumatic. LUNGS: Clear to auscultation bilaterally. HEART: Has regular rate and rhythm. ABDOMEN: Soft, gravid, and nontender. EXTREMITIES: Nontender, nonedematous. She has 2+ DTRs. LABORATORY DATA: Hepatitis B surface antigen and RPR both nonreactive in this hospitalization. Drug screen is negative. Total urine protein for 24 hours is 218. AST is 29, ALT is 15, creatinine is 0.61. BNP is 23.9. Hemoglobin is 10.4, hematocrit 31.9, and platelets of 298,000. VPIII is positive for Trichomonas and Bernadette, negative for Gardnerella. ASSESSMENT AND PLAN: The patient is a 33-year-old female with chronic hypertension and a about 33 weeks' gestation with a headache, unrelieved with one dose of Benadryl, Reglan, and Tylenol. I have discussed with the patient that we have seen no evidence of worsening of disease as her blood pressures have remained stable and no significant findings on her lab work. In reviewing her medications, it was noted that her Reglan and Benadryl regimen was cut short with only one dose. I will repeat her course of Reglan and Benadryl in an effort to break what sounds possibly be a migraine headache. I also will give her a dose of Fioricet. Should the headache resolve with these parameters, I would recommend discharged to home once the Primary Team is ready. ADDENDUM: The patient's headache spontaneously resolved after Benadryl and Reglan last night. This morning on evaluation, the patient also reported to me that her headache had resolved. There is an echocardiogram pending. Again, the patient from my standpoint is able to be discharged home with close outpatient followup with weekly visits and testing and weekly labs as indicated. The patient has a diagnosis of Trichomonas and Bernadette and appeared to be on metronidazole daily and vaginal clotrimazole. Job ID: [id number]
[2018-10-28] MEDS: metroNIDAZOLE 500 MG TAB PO SCH ×2 (09:11→21:44)
[2018-10-28] MEDS: Clotrimazole 2% 3 Day Vag Cr 22.2 GM TUBE VAG SCH (09:12)
[2018-10-28] MEDS: Famotidine 20 MG TAB PO SCH ×2 (09:12→21:44)
--- NOTE | 2018-10-28 16:02 | ULT ---
ULTRASOUND BIOPHYSICAL PROFILE: DATE: 10/28/2018 HISTORY: 33-year-old female with preeclampsia FINDINGS: breathin tone: 2 movement: 2 Amniotic fluid volume: 2 IMPRESSION: Normal biophysical profile score of 8 out of 8, excluding the nonstress test.
--- NOTE | 2018-10-29 08:00 | PDOC.LDPN ---
Labor & Delivery Progress Note - Subjective Subjective: comfortable (Patient complains of recurrence of headache overnight. Complains it is 10/10. Denies photophobia, nausea, vomiting, unilateral weakness , vaginal bleeding, discharge, or loss of fluid. ) - Objective Vital signs reviewed and normal: yes General: NAD (CV: RRR, Resp: CTA, Neuro: No focal Deficits, DTR 2+, Extremities : No edema) Uterine fundus: non tender - Assessment (1) Chronic hypertension affecting Code(s): O10.919 - UNSP PRE-EXISTING HTN COMP , UNSP TRIMESTER Current Visit: No Status: Acute (2) Iron deficiency anemia during Code(s): O99.019 - ANEMIA COMPLICATING , UNSPECIFIED TRIMESTER; D50.9 - IRON DEFICIENCY ANEMIA, UNSPECIFIED Current Visit: No Status: Acute (3) Trichomonosis Current Visit: Yes Status: Acute (4) Bernadette vaginitis Code(s): B37.3 - CANDIDIASIS OF VULVA AND VAGINA Current Visit: Yes Status: Acute Plan: continue plan of care -: 33 yo at 34.0 by 1T [place] with cHTN here for preE rule out sIUP, pre term - betamethasone x2 - no severe range blood pressures - Declined headache medications overnight - FHT: NST Qshift reactive. Pending this AM - GBS swab pending - BPP 12/09 on 10/28 cHTN with concern for preE - last pr/cr ratio .11 back in June 2018 - 24 hour urine protein WNL - blood pressure monitoring -> No severe range BP - no PRN given - ECHO pending - BNP WNL hx of cannabinoid use - seen on UDS on chart, pt. denies - UDS negative Vaginal discharge - GCC pending - Trich and Bernadette positive, continue treatment Disposition: Stable, after ECHO read received, patient can likely be discharged home. Addendum - Attending - Attending Attestation Date/Time: 10/29/18 1018 I personally evaluated the patient and discussed the management with Dr. Lozano. I agree with the History, Examination, Assessment and Plan documented above with any addition or exceptions noted below. Patient with recrudescence of headache but no scotoma. Her exam is unremarkable this morning. Her ddx remains status migrainosus, preE with severe features (argued against by the resolution of the pain yesterday), and postconcussion headache. We will repeat APAP this AM and consider laborist consultation. Discussed in detail with the patient.
[2018-10-29] MEDS: metroNIDAZOLE 500 MG TAB PO SCH (09:33)
[2018-10-29] MEDS: Clotrimazole 2% 3 Day Vag Cr 22.2 GM TUBE VAG SCH (09:33)
[2018-10-29] MEDS: Famotidine 20 MG TAB PO SCH (09:33)
[2018-10-29] MEDS ORDERED: Acetaminophen 500 MG TAB PO SCH (09:45)
--- NOTE | 2018-10-29 13:59 | PDOC.EVN ---
Event Note - Event Note Event Note: Spoke with Dr. Prakash, OB. Recommended using Reglan q30 x4 doses and Benadryl with 1st and 3rd dose to resolve headache. Instructions given to nursing staff, will follow up later today. Spoke with Dr. Bautista, attending, who is in agreement. Addendum - Attending - Attending Attestation Date/Time: 10/29/18 1713 Headache resolved per resident. TTE read reassuring. APT have been reassuring. Low suspicion for preE with severe features. Follow up and return precautions.
[2018-10-29] MEDS ORDERED: diphenhydrAMINE 25 MG CAP PO SCH (14:00)
[2018-10-29] MEDS: Metoclopramide HCl 10 MG TAB PO SCH ×2 (14:23→15:05)
[2018-10-29 16:54] VITALS: BP 133/88; TEMP 99.6
--- NOTE | 2018-11-01 01:28 | DIS ---
DATE OF ADMISSION: 10/26/2018 DATE OF DISCHARGE: 10/29/2018 RESIDENT: Herb Lozano MD. ADMITTING ATTENDING: Rosa Conti, DO DISCHARGE ATTENDING: Nav Bautista MD. CONSULTATIONS: OB hospitalist group, Dr. Gonzalez. PROCEDURES: 1. On 10/27/2018, the patient underwent a limited OB ultrasound biophysical profile that showed a score of 8 of 8 with an amniotic fluid index at 9 cm with a single intrauterine gestation and cephalic presentation. 2. On 10/28/2018, the patient underwent an another biophysical profile ultrasound that showed a normal biophysical profile of 8 of 8 as well. 3. On 10/28/2018, the patient underwent an echocardiogram that showed EF of 55% to 60%. PRIMARY DIAGNOSES: 1. Intractable headache. 2. intrauterine . 3. Chronic hypertension affecting . 4. Iron deficiency anemia during . 5. Trichomonas. 6. Bernadette vaginitis. DISCHARGE MEDICATIONS: 1. Aspirin 81 mg p.o. daily. 2. Clotrimazole 2% vaginal application daily. 3. Metronidazole 500 mg p.o. b.i.d. #9. DISCONTINUES MEDICATIONS: None. HISTORY OF PRESENT ILLNESS AND HOSPITAL COURSE: The patient is a 33-year-old, G5, P2-0-2-2 at 33 weeks and 4 days gestation by first-trimester ultrasound, who was sent to Labor and Delivery due to concerns of preeclampsia. The patient had a history of chronic hypertension, which she was previously on HCTZ. The patient had reported BP of 147/90s with headache and block spots in her vision, which started yesterday. The patient denied chest pain, worsening extremity edema, or shortness of breath. The patient also had 2 prior pregnancies complicated by preeclampsia with babies delivered at 38 weeks via C-sections. The patient reports her home BP was in the 140s/90s, but her clinical records indicate noncompliance. She has not taken aspirin daily as well. The patient just states that she had no other symptoms except for headache that started the day before admission. During this hospitalization, the patient continued to have a worsening headache that required treatment with Reglan, Benadryl, and Fioricet. The patient also did not have any elevated blood pressures in the severe range, although she did have multiple blood pressure readings that were in the 150s/90s. Due to her intractable headaches, the patient had a consultation with the OB laborist team and Dr. Gonzalez. He actually recommended the further Fioricet dosing as well as consideration for an MRI to determine if there is an intracranial pathology for these headaches. After 3 doses of Fioricet with Reglan and Benadryl, the headaches did resolve. The patient had a past history of syncopal episodes during this and so it was decided that she needed a cardiac workup while hospitalized. The patient had an echocardiogram and an EKG and a BMP that were all unremarkable. The patient otherwise continued to improve and had a recurrence of her headache on day of admission, however, that did subside with 2 doses of Reglan and Benadryl. The patient was advised extensively on return precautions including worsening headache, elevated blood pressures, lower extremity edema, other signs of preeclampsia, or obvious signs of labor. The patient did have notable lab values. She had an unremarkable preeclamptic workup with urine protein of 15, total urine protein 24 hours of 218. AST and ALT are 29 and 15 respectively with a BNP that is 23.9. Hemoglobin was 10.4, which is essentially at her baseline. The patient also had an unremarkable UDS screen as well as negative syphilis and hepatitis B testing. Otherwise, the patient tolerated the hospitalization well and was discharged in appropriate condition. DISPOSITION: Stable. DISCHARGE INSTRUCTIONS: 1. Location: She will be discharged home in the care of herself and her family. 2. Diet will be as tolerated with precautions. 3. Activity will be as tolerated with obvious fall precautions. 4. Followup will be with her primary care provider, Dr. Jakob Oconnor with [facility] in 1-3 days to further discuss her chronic hypertension and headaches. Job ID: [id number] [facility]
== END 2018-10-29 17:05 | disposition home or self-care (01) ==
LOC: L&D/OP 16:47 → L&D 19:20 → 3SW 10-27 08:51
PROVIDERS: ADMIT Family Medicine; ATTEND Family Medicine
DX: O10.013 Pre-existing essential hypertension complicating pregnancy, third trimester (principal); O99.89 Other specified diseases and conditions complicating pregnancy, childbirth and the puerperium; R51 Headache; O99.013 Anemia complicating pregnancy, third trimester; D50.9 Iron deficiency anemia, unspecified; O98.313 Other infections with a predominantly sexual mode of transmission complicating pregnancy, third trimester; A59.01 Trichomonal vulvovaginitis; Z3A.33 33 weeks gestation of pregnancy
CPT/HCPCS: 36415; 36416; 59025; 76819; 80053; 80306; 83880; 84156; 84550; 85025; 86780; 86850; 86900; 86901; 87077; 87081; 87340; 87480; 87510; 87660; 93005; 93010; 93306; 96361; 96372; 96374; 96375; 96376; 99285; G0378; J0702; J1200; J2765; J8597; Q0163

== ENCOUNTER 2018-10-30 19:36 | Day surgery (SDC) | payer OTHER ==
[2018-10-30] MEDS ORDERED: hydrALAZINE 20 MG/ML VIAL SLOW IVP PRN (20:12)
[2018-10-30] MEDS ORDERED: Acetaminophen 500 MG TAB PO SCH (20:15)
[2018-10-30] MEDS ORDERED: Lactated Ringer's 500 ML IV SCH (20:15)
[2018-10-30 20:31] LABS: Bacteria/HPF 1+ HPF (None Seen); Bilirubin Negative (Negative); Blood, Urine Negative (Negative); Glucose, Urine (Dipstick) Negative (Negative); Hyaline Casts/LPF 7-10 HYALINE CAST LPF (0-3 Hyaline); Leukocyte Small (Negative); Nitrite Negative (Negative); Pathc Cast-AUWi Flag 0.54 (0-2.49); Protein, Urine (Dipstick) Negative (Neg-Trace)
[2018-10-30 20:32] LABS: Clarity Clear (Clear)
--- NOTE | 2018-10-30 20:33 | PDOC.EVN ---
Event Note - Event Note Event Note: OBGYN Appeals Officer Note Brief informal consultation Requested by Dr Bautista CC: DOHERTY on/off Time: 2024 HPI: 33 yo prior CS x 2 at term for PRE, now at 34 weeks 1 day, here for on/ off spots before ewyes and DOHERTY. HX CHTN not compliant on meds 9HCTX). Was recently admitted for BP obs with resolution of SXS. UProtein under 300mg/24 hrs and labs were normal. She was just discharged yesterday. Good FM. HX chronic HAs as well. Physical: NAD BPs here are 140s/90s. Labs were normal last admit (CBC and CMP). Past OB: CS X2 Allergies none BPs here as above Social: has used MJ in past, denies recent Strip: Reactive for EGA, no CTX A/P: 34 weeks, CS x 2, CHTN off meds...DOHERTY hx. Plan: 1. follow BPs 2. Recommend expectant mgmt as DOHERTY not specific for preeclampsia, as BPs are not severe. 3. TRreat with reglan/benadryl for possible atypical migraine or just tylenol prn 4. Monitor strip As for all severe criteria, DOHERTY is not as specific for prodrome eclampsia if BPs are not severe. At this time, would recommend expectant care due to EGA and non- severe BPs.
[2018-10-30 20:37] VITALS: BMI 31.8
[2018-10-30 20:39] LABS: RBC/HPF 0-3 HPF (0-3)
[2018-10-30 20:40] LABS: Urine Culture Reflex No No
--- NOTE | 2018-10-30 21:00 | PDOC.FPROB ---
FMR OB H&P: Medications - Current Home Medications: Medication Instructions Recorded Confirmed Type Aspirin [[place] Aspirin EC] 1 tab PO DAILY 08/23/18 10/26/18 History Clotrimazole 2% 3 Day Vag Cr 1 applic VAG DAILY #1 tube 10/28/18 Rx [Clotrimazole 2% 3 Day Vaginal Cream] metroNIDAZOLE [Flagyl] 500 mg PO BID #9 tab 10/28/18 Rx Allergies/Adverse Reactions: Allergies Allergy/AdvReac Type Severity Reaction Status Date / Time No Known Allergies Allergy Verified 10/30/18 20:48 FMR OB H&P: Results - Labs Lab results: Laboratory Results - last 24 hr 10/30/18 20:00 Urine Color Yellow Urine Clarity Clear Urine pH 7.5 Ur Specific [place] 1.015 Urine Protein Negative Urine Glucose (UA) Negative Urine Ketones Negative Urine Blood Negative Urine Nitrite Negative Urine Bilirubin Negative Urine Urobilinogen 1.0 Ur Leukocyte Esterase Small H Urine RBC 0-3 Urine WBC 11-20 H Ur Squamous Epith Cells 11-20 H Urine Bacteria 1+ H Hyaline Casts 7-10 HYALINE CAST H Urine Culture Reflexed No FMR OB H&P: A/P Discussion: Date/Time: 10/30/18 2100 PCP: Soniya ORTIZ HPI: This is a 33 yo at 34.1 wks by 1TUS (according to last admit h&p, records not available) presenting for dizziness. She states she has been seeing stars all days and feels somewhat dizzy, further characterized as weak. Denies vertigo. She checked her pressure at home and it was 145/90. She came in because her Auntie thought she should get checked out, she was going to stay home otherwise. She states she has a headache which is no different from her usual headache. She has been tolerating PO without difficulty. She states she has mild suprapubic pressure. Denies burning or blood with urination. Denies vaginal bleeding or discharge. She thinks it might just be the baby kicking. She states it does not feel like contractions. She affirms movement, denies cxns, denies leakage of fluid. History: OB hx: c/s x2 at term 2/2 pre-e, cHTN PMH: HTN PSH: c/s x2 Meds: PNV, iron, asa All: NKDA Soc Hx: denies smoking, alcohol, drugs Blood type: B+ Abs screen neg Hep b neg RPR/HIV neg Rubella immune GBS: positive REVIEW OF SYSTEMS: Gen: no fever, chills, or sweats Neuro: no numbness/tingling, no weakness, + wade ENT: denies congestion Eyes: +scotoma Resp: no cough, no SOB, no wheeze Card: denies chest pain, no palpitations GI: no N/V/D, no abdominal pain : no dysuria, no hematuria Skin: no rash, no erythema Vitals: T: 98.1 R: 18 BP: max 154/82 P:108 Sat: 100% on RA PHYSICAL EXAMINATION: General: NAD, alert and oriented x3 HEENT: EOMI, normal sclera Neck: Supple. Full ROM. Heart/Cardiovascular System: RRR, Cap refill < 3 seconds, no rub, no murmur Lungs/Respiratory System: clear to auscultation bilaterally. No increased work of breathing. Room air. Abdomen/Gastro-Intestinal System: no abdominal tenderness, normal bowel sounds, Gravid Extremities: Warm extremities. No cyanosis or edema. Neuro: No gross deficits appreciated, normal DTRs at knee, no clonus Psychiatry: Awake, Alert and cooperative with exam Skin: No lesions, rashes Musculoskeletal: Full ROM A/P: 33 yo at 34.1 by 1T [place] with cHTN here for dizziness sIUP, pre term - s/p betamethasone x2 - GBS positive -no severe range blood pressure, ranging 140s/90s - 1g tylneol -FHT: reactive reassuring, no CTX, continue BP & monitoring for few hours cHTN with concern for preE - hx of c/s x2 at term 2/2 preE - 24 hr urine protein 218 - CBC, CMP WNL Vaginal Candidiasis, Trichomonas - being treated with clotrimazole, flaggyl - asymptomatic Offered overnight observation of blood pressures to patient and patient elected to go home Patient states she will return for pressures >160 systolic, worsening headache, scotoma, SOB, or swelling F/u in clinic for BP check in 2-3 days will f/u on urine culture UDS did not result because of insufficient urine, will have re-check at time of delivery Recommend scheduled 37.0 scheduled Addendum - Attending - Attending Attestation Date/Time: 10/31/18 4143 I personally evaluated the patient and discussed the management with Dr. Moon and Dr. Rodriguez. I agree with the History, Examination, Assessment and Plan documented above with any addition or exceptions noted below. BP's no different from her last admission where we observed her for several days. She tells me that now her headache is only mild and she is not seeing spots. She denies RUQ/CRISTIN pain. I have offered her observation overnight and she desires to go home, and voiced understanding of risks of superimposed preeclampsia, including seizure/stroke/etc as I have counseled her on many occasions previously.
[2018-10-31 10:54] LABS: Amphetamine Not Detected (NotDetected); Barbiturates Screen Detected (NotDetected); Benzodiazepine Screen Not Detected (NotDetected); Cocaine Metabolite Screen Not Detected (NotDetected); Medtox Reader # READER 4; Methadone Not Detected (NotDetected); Methamphetamine Not Detected (NotDetected); Opiate Screen Not Detected (NotDetected); Oxycodone Screen Not Detected (NotDetected); Phencyclidine (PCP) Not Detected (NotDetected); THC/Cannabinoid Screen Not Detected (NotDetected); Tricyclic Screen Not Detected (NotDetected)
[2018-10-31 10:55] LABS: Medtox Control Line Valid? VALID (VALID)
== END 2018-10-30 22:30 | disposition home or self-care (01) ==
LOC: L&D/OP 19:36
PROVIDERS: ATTEND Emergency Medicine
DX: O10.913 Unspecified pre-existing hypertension complicating pregnancy, third trimester (principal); O98.813 Other maternal infectious and parasitic diseases complicating pregnancy, third trimester; B37.3 Candidiasis of vulva and vagina; Z79.82 Long term (current) use of aspirin; Z3A.34 34 weeks gestation of pregnancy
CPT/HCPCS: 80306; 81001; 87086; 96360; 96361; 99283

== ENCOUNTER 2018-11-05 15:16 | Day surgery (SDC) | payer OTHER ==
[2018-11-05] MEDS ORDERED: hydrALAZINE 20 MG/ML VIAL SLOW IVP PRN (16:04)
[2018-11-05] MEDS ORDERED: diphenhydrAMINE 25 MG in Sodium Chloride 0.9% 50 ML IVPB SCH (16:15)
[2018-11-05] MEDS ORDERED: Lactated Ringer's 1,000 ML IV SCH (16:15)
[2018-11-05] MEDS ORDERED: Metoclopramide HCl 10 MG/2 ML VIAL IVP SCH (16:15)
--- NOTE | 2018-11-05 16:21 | PDOC.FPROB ---
FMR OB H&P: HPI - History of Present Illness Chief Complaint: headache Indentification: 33 yo @ 35 weeks by 1TUS reportedly History of Present Illness: Patient is a 33 yo female with a history of 2 deliveries and a medical history of chronic HTN presenting at 35 weeks today with symptoms of headache. She states that she has been having a headache every few days ever since she fell down the stairs 3 weeks ago with +LOC. She states she was evaluated at an outpatient clinic and was subsequently evaluated at the hospital after the fall. She states that the headaches begin over her right eye and move across her forehead to above her left eye. She states her current headache began this morning at 9am when she woke up. She has only taken 1000mg tylenol at 12:30pm today but it has not helped. Her headache is accompanied by visual flashes and dark spots in her right eye. Her headaches are exacerbated by bright lights. She denies contractions, vaginal bleeding, vaginal fluid, chest pain, SOB, dizziness, or light-headedness. This has been complicated by the patient testing positive for trichomonus, but she was treated by the clinic and denied having intercourse with the same partner since. Her HTN was treated with HCTZ, but she has stopped taking it as advised by her pcp at the clinic when she became . She continues to take ASA 81mg, ferrous sulfate, and a PNV at home. 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: hx of trichomonas s/p treatment - Surgical History Sx History: 2 prior c-sections 2/2 pre-e - Social History Social History: denies: smoking, etoh, drugs FMR OB H&P: Medications - Current Home Medications: Medication Instructions Recorded Confirmed Type Aspirin [[place] Aspirin EC] 1 tab PO DAILY 08/23/18 11/05/18 History Metoclopramide HCl [Reglan] 10 mg PO TID PRN #30 tab 11/05/18 Rx diphenhydrAMINE [Benadryl] 25 mg PO Q6HR PRN #30 cap 11/05/18 Rx Allergies/Adverse Reactions: Allergies Allergy/AdvReac Type Severity Reaction Status Date / Time No Known Allergies Allergy Verified 10/30/18 20:48 FMR OB H&P: ROS - Review of Systems General: reports: recent trauma. denies: fever/chills, weight/appetite/sleep changes, night sweats Eyes: reports: vision changes, scotomas, floaters Cardiovascular: denies: chest pain Respiratory: denies: cough, shortness of breath Gastrointestinal: denies: abdominal pain, nausea, vomiting, diarrhea, constipation Genitourinary (Female): denies: dysuria, hematuria FMR OB H&P: Vital Signs - Maternal Vital signs: BP: 148/98 HR: 93 O2 Sat: 100% on room air - Heart Tones Baseline: 145 Variability: moderate Acceleration: present Deceleration: absent Category: category 1 [place] contractions every: none FMR OB H&P: Physical Exam - Physical Exam General: NAD, awake, alert and oriented HEENT: normocephalic and atraumatic Chest: non-tender to palpation Heart: RRR, normal S1/S2 General: CTAB Abdomen: soft, gravid, non-tender, bowel sound present FMR OB H&P: A/P - Problem List (1) Chronic hypertension affecting Current Visit: No Status: Acute Code(s): O10.919 - UNSP PRE-EXISTING HTN COMP , UNSP TRIMESTER (2) Iron deficiency anemia during Current Visit: No Status: Acute Code(s): O99.019 - ANEMIA COMPLICATING , UNSPECIFIED TRIMESTER; D50.9 - IRON DEFICIENCY ANEMIA, UNSPECIFIED (3) GBS (group B Streptococcus carrier), +RV culture, currently Current Visit: Yes Status: Acute Code(s): O99.820 - STREPTOCOCCUS B CARRIER STATE COMPLICATING (4) Trichomonosis Current Visit: No Status: Acute (5) Drug abuse during Current Visit: Yes Status: Acute Code(s): O99.320 - DRUG USE COMPLICATING , UNSPECIFIED TRIMESTER; F19.10 - OTHER PSYCHOACTIVE SUBSTANCE ABUSE, UNCOMPLICATED Disposition: Headache likely 2/2 migraine -migraine protocol: reglan + benadryl -IV fluid hydration -Will re-evaluate after interventions cHTN with concern for preE - hx of c/s x2, one , one at term 2/2 preE - tylenol, reglan, benadryl - IV hydration - BP 148/98 today - CBC, CMP, urine protein pending Anemia of -patient reports continued iron supplementation Hx of C-sections -x2 -first for severe pre-e at 36 weeks -second for elevated BP and hx of prior section Hx of severe Pre-e -patient currently taking asa 81mg -has had several pre-e work-ups this which have all been negative Trichomonas -s/p treatment, last dose of medication Thursday -will need test of cure in 3-4 weeks GBS + on 10/26/2018 -will need re-testing before delivery Drug abuse during -UDS +THC Dispo: d/c home with f/u next week with MFM and care Return if symptoms do not improve with meds or if symptoms worsen Discussion: Date/Time: 11/05/18 7082 This H&P was discussed with [Randall] who agrees with the above documentation and plan. Signature: Paige Ding MD
[2018-11-05 16:31] VITALS: BMI 32.3
[2018-11-05 16:44] LABS: #Eosinphils 0.1 thou/uL (0.0-0.7); #Lymphocytes 2.1 thou/uL (1.20-3.40); #Neutrophils 5.4 thou/uL (1.40-6.50); %Basophils 0.3 % (0.0-1.0); %Eosinophils 1.5 % (0.0-10.0); %Lymphocytes 24.4 % (21.0-51.0); %Monocytes 11.5 % (0.0-10.0); %Neutrophils 62.3 % (42.0-75.0); Hemoglobin 10.2 g/dL (12.0-16.0); Mean Corpuscular HGB CONC 32.7 g/dL (32.0-36.0); Mean Corpuscular Volume 85.7 fL (78.0-98.0); Mean Platelet Volume 8.1 fL (7.4-10.4); Platelet Count 277 thou/uL (130-400); RBC Distribution Width 19.9 % (11.5-14.5); Red Blood Cell (RBC) Count 3.63 mill/uL (4.20-5.40); White Blood Cell (WBC) Count 8.6 thou/uL (4.8-10.8)
[2018-11-05 17:03] LABS: ALT (SGPT) 12 U/L (8-55); AST (SGOT) 26 U/L (5-34); Albumin 3.3 g/dL (3.5-5.0); Alkaline Phosphatase 123 U/L (40-150); Anion Gap 12 mmol/L (10-20); BUN (Urea Nitrogen) 4 mg/dL (7.0-18.7); Bilirubin, Total 0.3 mg/dL (0.2-1.2); Calc. Creatinine Clearance 176 mL/min (70-130); Calcium 8.9 mg/dL (7.8-10.44); Carbon Dioxide 23 mmol/L (22-29); Chloride 104 mmol/L (98-107); Estimated GFR-MDRD Greater than 90; Globulin 2.6 g/dL (2.4-3.5); Glucose 72 mg/dL (70-105); Potassium 3.8 mmol/L (3.5-5.1); Protein, Total 5.9 g/dL (6.0-8.3); Sodium 135 mmol/L (136-145)
[2018-11-05 17:05] LABS: Amphetamine Not Detected (NotDetected); Barbiturates Screen Not Detected (NotDetected); Benzodiazepine Screen Not Detected (NotDetected); Cocaine Metabolite Screen Not Detected (NotDetected); Medtox Control Line Valid? VALID (VALID); Medtox Reader # READER 4; Methadone Not Detected (NotDetected); Methamphetamine Not Detected (NotDetected); Opiate Screen Not Detected (NotDetected); Oxycodone Screen Not Detected (NotDetected); Phencyclidine (PCP) Not Detected (NotDetected); THC/Cannabinoid Screen Detected (NotDetected); Tricyclic Screen Not Detected (NotDetected)
== END 2018-11-05 18:05 | disposition home health service (06) ==
LOC: L&D/OP 15:16
PROVIDERS: ATTEND Obstetrics & Gynecology
DX: O99.353 Diseases of the nervous system complicating pregnancy, third trimester (principal); G43.909 Migraine, unspecified, not intractable, without status migrainosus; O10.913 Unspecified pre-existing hypertension complicating pregnancy, third trimester; O99.013 Anemia complicating pregnancy, third trimester; D50.9 Iron deficiency anemia, unspecified; O99.820 Streptococcus B carrier state complicating pregnancy; O99.323 Drug use complicating pregnancy, third trimester; F19.10 Other psychoactive substance abuse, uncomplicated; Z87.59 Personal history of other complications of pregnancy, childbirth and the puerperium; Z79.82 Long term (current) use of aspirin; Z3A.35 35 weeks gestation of pregnancy
CPT/HCPCS: 36415; 80053; 80306; 81003; 82570; 85025; 96365; 96375; 99283; J1200; J2765

== ENCOUNTER 2018-11-11 12:00 | Inpatient (IN) | payer OTHER ==
[2018-11-11 12:37] VITALS: BMI 32.9
[2018-11-11] MEDS ORDERED: hydrALAZINE 20 MG/ML VIAL ONE (12:47)
[2018-11-11] MEDS: Lactated Ringer's 1,000 ML IV SCH (12:57)
[2018-11-11] MEDS ORDERED: Ondansetron PF 4 MG/2 ML Vial IVP PRN ×2 (13:01→16:33)
[2018-11-11] MEDS ORDERED: hydrALAZINE 20 MG/ML VIAL SLOW IVP PRN (13:01)
[2018-11-11] MEDS ORDERED: Promethazine HCl 25 MG/ML VIAL IM PRN ×2 (13:01→16:33)
[2018-11-11] MEDS ORDERED: Calcium Gluc 4.6 MEQ/10 ML (100 MG/ML) SLOW IVP PRN (13:01)
--- NOTE | 2018-11-11 13:03 | PDOC.FPROB ---
FMR OB H&P: HPI - History of Present Illness Chief Complaint: Chronic HTN/severe range pressures at 35.6 weeks History of Present Illness: Auncas Galarza is a 33 yo at 35.4 by LMP at 9.2 weeks by sono who is presenting with severe range pressures. Her PMH significant for chronic HTN which has not required treatment during . She has been seen and followed by MFM who noted severe range pressures this morning. They recommended proceeding with a repeat due to her severe range pressures. She received steroids on 10/26 and 10/27. She has been seen on L&D in the past and as recent as 11/05/18 with elevated blood pressures which were not in severe range at the time. Prior to this she was prescribed HCTZ but has not been on BP pressure medication since, only ASA 81 mg, ferrous sulfate, and PNV. She has history of 2 C-sections in 2008 and 2003. Initial C/S was for pre-E with severe features. Patient also had Pre-E in the second . This has been complicated by positive trich for which she completed treatment for 2 weeks ago. 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 tx of trichimonosis - Surgical History Sx History: Ceserean x2 - Social History Social History: Tobacco: quit when dx with current Marijuana: said she stopped at beginning of - positive UDS during current Drugs: denies any other drug use - Family History Family History: Negative FMR OB H&P: Medications - Current Home Medications: Medication Instructions Recorded Confirmed Type Aspirin [[place] Aspirin EC] 1 tab PO DAILY 04/22/19 07/11/19 History Hydrochlorothiazide 25 mg PO QAM 11/11/18 11/11/18 History Allergies/Adverse Reactions: Allergies Allergy/AdvReac Type Severity Reaction Status Date / Time No Known Allergies Allergy Verified 10/30/18 20:48 FMR OB H&P: A/P - Problem List (1) Chronic hypertension affecting Current Visit: No Status: Acute Code(s): O10.919 - UNSP PRE-EXISTING HTN COMP , UNSP TRIMESTER (2) Drug abuse during Current Visit: No Status: Acute Code(s): O99.320 - DRUG USE COMPLICATING , UNSPECIFIED TRIMESTER; F19.10 - OTHER PSYCHOACTIVE SUBSTANCE ABUSE, UNCOMPLICATED (3) GBS (group B Streptococcus carrier), +RV culture, currently Current Visit: No Status: Acute Code(s): O99.820 - STREPTOCOCCUS B CARRIER STATE COMPLICATING (4) Iron deficiency anemia during Current Visit: No Status: Acute Code(s): O99.019 - ANEMIA COMPLICATING , UNSPECIFIED TRIMESTER; D50.9 - IRON DEFICIENCY ANEMIA, UNSPECIFIED (5) Trichomonosis Current Visit: No Status: Acute Disposition: # IUP at 35.6 Weeks with previous C-Sections x 2 - repeat today for chronic HTN with severe range pressures # Chronic Hypertension w/ Severe Range Pressures Followed by M who saw pt today and recommended today - will proceed with rLTCS - pending CBC, CMP, Urine prot:creatinine - LR 125 mls/hr IV - NPO - Mg 4g loading, 2g/hr maintenance # GBS Positive on 10/26/18 - Patient will receive ancef prior to C/S - Will monitor for 48 hours # Hx of Trichomonosis - finished 11/02 treatment - will need ERICA, consider prior to d/c # Anemia of - On iron supplementation # THC abuse in - Positive drug test Disposition: Admit to L&D. BP control with PRN BP medications. Start on Mg. Plan for rLTCS. Discussion: Date/Time: 11/11/18 1301 This H&P was discussed with Dr. Edouard who agrees with the above documentation and plan. Signature: Darby Chairez DO PGY-3 Addendum - Attending - Attending Attestation Date/Time: 11/11/18 0810 I personally evaluated the patient and discussed the management with Drs. Cannon and Rhys. I agree with the History, Examination, Assessment and Plan documented above.
[2018-11-11] MEDS ORDERED: Magnesium Sulfate 20 GM/WATER 500 ML BAG IVPB SCH (13:15)
[2018-11-11] MEDS ORDERED: Labetalol HCl 100 MG/20 ML VIAL SLOW IVP SCH (13:15)
[2018-11-11] MEDS: Magnesium Sulfate 20 gm/500 ml 20 GM/500 ML BAG IVPB SCH ×2 (13:23→21:24)
[2018-11-11] MEDS ORDERED: CEFAZOLIN 2 GM in Premix Bag 1 BAG IVPB SCH (13:30)
[2018-11-11] MEDS ORDERED: Bicitra 30 ML UDCUP PO SCH (13:30)
[2018-11-11 13:40] LABS: Hemoglobin 11.2 g/dL (12.0-16.0); Mean Corpuscular HGB CONC 31.3 g/dL (32.0-36.0); Mean Corpuscular Hemoglobin 26.7 pg (27.0-31.0); Mean Corpuscular Volume 85.1 fL (78.0-98.0); Mean Platelet Volume 9.2 fL (7.4-10.4); Platelet Count 246 thou/uL (130-400); RBC Distribution Width 19.8 % (11.5-14.5); Red Blood Cell (RBC) Count 4.19 mill/uL (4.20-5.40); White Blood Cell (WBC) Count 8.6 thou/uL (4.8-10.8)
[2018-11-11] MEDS ORDERED: Dexamethasone 20 MG/5 ML VIAL ONE (13:42)
[2018-11-11] MEDS ORDERED: PHENYLEPHRINE-NS 100 MCG/ML 10 ML SYRINGE ONE (13:42)
[2018-11-11] MEDS ORDERED: Ketorolac Tromethamine 30 MG/ML VIAL ONE ×2 (13:42→14:50)
[2018-11-11] MEDS ORDERED: Ondansetron PF 4 MG/2 ML Vial ONE ×2 (13:42→14:50)
[2018-11-11 13:55] LABS: Anion Gap 14 mmol/L (10-20); BUN (Urea Nitrogen) 5 mg/dL (7.0-18.7); Calc. Creatinine Clearance 183 mL/min (70-130); Calcium 9.2 mg/dL (7.8-10.44); Carbon Dioxide 21 mmol/L (22-29); Chloride 105 mmol/L (98-107); Estimated GFR-MDRD Greater than 90; Glucose 65 mg/dL (70-105); Sodium 136 mmol/L (136-145)
[2018-11-11 13:56] LABS: ALT (SGPT) 10 U/L (8-55); AST (SGOT) 25 U/L (5-34); Albumin 3.4 g/dL (3.5-5.0); Alkaline Phosphatase 140 U/L (40-150); Bilirubin, Total 0.4 mg/dL (0.2-1.2); Globulin 2.7 g/dL (2.4-3.5); Protein, Total 6.1 g/dL (6.0-8.3)
[2018-11-11 14:13] LABS: HBSAg Index 0.32 S/CO (0-0.99); Hep B Surf Ag Non-Reactive S/CO (NonReactive)
[2018-11-11 14:14] LABS: Syphilis Antibody Nonreactive (Nonreactive); Syphilis Antibody Index 0.02 S/CO (<1.00 Non-Reactive)
[2018-11-11 14:32] LABS: Creatinine, Urine 77.79 mg/dL (47-110)
[2018-11-11] MEDS ORDERED: Fentanyl 100 MCG/2 ML VIAL ONE (14:48)
[2018-11-11] MEDS ORDERED: MORPHINE 5 MG/10 ML PF VIAL ONE (14:49)
[2018-11-11] MEDS ORDERED: ePHEDrine/0.9% NaCl/PF SYRINGE 50 mg/10 ml ONE (14:50)
[2018-11-11] MEDS ORDERED: Phenylephrine HCL 10 MG/ML VIAL ONE (14:50)
[2018-11-11] MEDS ORDERED: Dexamethasone 4 mg/ml Vial ONE (14:50)
[2018-11-11] MEDS ORDERED: Oxytocin 10 UNITS/ML VIAL ONE (14:50)
[2018-11-11] MEDS ORDERED: Lidocaine 2% PF Inj 2 ML VIAL ONE (15:22)
[2018-11-11] MEDS ORDERED: Lidocaine 1% PF 5 ML VIAL ONE (15:31)
[2018-11-11] MEDS ORDERED: diphenhydrAMINE 50 MG/ML VIAL IVP PRN (16:33)
[2018-11-11] MEDS ORDERED: Ketorolac Tromethamine 30 MG/ML VIAL IVP PRN (16:33)
[2018-11-11] MEDS ORDERED: Meperidine HCl/PF 25 MG/ML VIAL SLOW IVP PRN (16:33)
[2018-11-11] MEDS ORDERED: Naloxone HCl 0.4 mg/ml Vial IVP PRN ×2 (16:33)
[2018-11-11] MEDS ORDERED: Ondansetron HCl/PF 4 MG/2 ML Vial IVP PRN (16:33)
[2018-11-11] MEDS ORDERED: L&D-Morphine 4 MG/ML VIAL SLOW IVP PRN (16:33)
[2018-11-11] MEDS ORDERED: Promethazine HCl 25 MG SUPP PR PRN (16:33)
[2018-11-11] MEDS ORDERED: Naloxone HCl 0.4 mg/ml Vial IV PRN (16:33)
[2018-11-11] MEDS ORDERED: HYDROmorphone 2 MG/ML VIAL SLOW IVP PRN (16:33)
[2018-11-11] MEDS ORDERED: Ketorolac Tromethamine 30 MG/ML VIAL IVP SCH (16:45)
[2018-11-11] MEDS ORDERED: Communication Order-Pharmacy FS SCH (16:45)
--- NOTE | 2018-11-11 18:45 | OP ---
DATE OF PROCEDURE: 11/11/2018 Attending Physician: Ish Edouard MD RESIDENT SURGEON: Dr. Jakob Oconnor. WEB PRESS OPERATOR ASSISTANT SURGEON: Dr. Darby Chairez. PROCEDURE PERFORMED: Repeat low transverse section. PREOPERATIVE DIAGNOSES: 1. intrauterine . 2. Previous section. 3. Chronic hypertension with superimposed preeclampsia with severe features. POSTOPERATIVE DIAGNOSES: 1. intrauterine . 2. Previous section. 3. Chronic hypertension with superimposed preeclampsia with severe features. ANESTHESIA: Spinal. INDICATIONS: The patient is a 33-year-old, G5, P2-0-2-2 at 35 and 4 by LMP in a 9.2-week sono, who came in from outside clinic with severe range blood pressures and headache with scotoma. DESCRIPTION OF PROCEDURE: After risks, benefits, and alternatives were explained to the patient, she gave informed consent. Preoperative antibiotics included Ancef 2 g IV. The patient was taken to the operating room and spinal anesthesia was initiated. She was placed in the supine position with a left tilt, prepped and draped in usual sterile fashion. A Pfannenstiel incision was made with a scalpel, carried down to the level of fascia, which was sharply nicked. The fascial cut was extended bilaterally with Ward scissors. The inferior and superior edges of the cut fascial edges were elevated with Hugo clamps, and the underlying rectus muscles were sharply and bluntly dissected free. The left rectus muscle was noted to have a small bleeder, which was cauterized and hemostasis was achieved. The recti were divided digitally and retracted manually. The scar tissue from her prior sections was sharply dissected with Metzenbaum scissors. The peritoneum was then entered bluntly and retracted manually. The bladder blade was placed. A low transverse score was made with a scalpel and the uterus was entered in the midline with the scalpel. Clear fluid was seen. The hysterotomy was extended manually. The was noted to be vertex and easily delivered by fundal pressure. Mouth and nares were bulb suctioned. The cord was clamped and cut and grossly normal male was handed to the awaiting nurse. The cord blood was obtained in addition to a cord gases. The placenta was then delivered spontaneously and found to be intact with a 3-vessel cord and sent to lab for pathology review. The uterus was then externalized and endometrium was curetted with a dry lap. The bladder blade was replaced and the uterus was closed with a running locking 1 Monocryl suture. Following this, a small bleeder was noted on the left border of the hysterotomy incision superior to the incision line, which was stitched with a 1 Monocryl, followed by 1 chromic suture. Subsequently, a small bleeder was noted again superior to the hysterotomy, which was cauterized with Bovie cauterization and hemostasis was achieved. Following this, hemostasis was again noted. The abdomen was suctioned free of clots. The uterus was then internalized and hysterotomy was noted to have a small bleeder along the hysterotomy, which was cauterized and hemostasis was achieved. Following this, the hysterotomy was noted to be hemostatic. The fascia was then closed with a running nonlocking 1 PDS suture. The subcutaneous tissue was then irrigated and bleeders were cauterized with Bovie cauterization. The skin was approximated with gloria and a pressure dressing was placed. All counts were correct. The patient tolerated the procedure well and was taken to recovery room in stable condition. QUANTITATIVE BLOOD LOSS: 360mL. COMPLICATIONS: None. SPECIMENS: Cord blood sent to lab for blood type. FINDINGS: 1. Grossly normal male infant with Apgars of 1 and 8 at one and five minutes respectively. 2. Grossly normal placenta with 3-vessel cord was sent to the lab for pathology review. DRAINS: Matthews to gravity draining clear urine. TIME OF DELIVERY: 1354 hours. Job ID: [id number] [facility]
--- NOTE | 2018-11-11 20:58 | PDOC.EVN ---
Event Note - Event Note Event Note: Pt was seen 4H post-op s/p pLTCS and for Mag check. She has pain at the incision site only with movement. She has minimal bleeding. Incision is clean and dry. She had 325 cc ouput over the last hour. Headache has resolved and she has no vision changes. She is Bottle Feeding. VS: T-97.6, HR-97, RR-14, O2 98% on RA She had two BPs in the 140s/90s, but nothing >160/110. Heart: RRR Normal S1 S2 Lungs: CTAB Patellar and Brachioradialis reflexes are 2+ bilaterally, no clonus present. We will continue to monitor and she will remain on Mag until 24H after delivery. Ice chips for now. Addendum - Attending - Attending Attestation Date/Time: 11/12/18 6562 I evaluated the patient and discussed the management with Dr. Sorenson. I agree with the Assessment and Plan documented above.
--- NOTE | 2018-11-12 00:30 | PDOC.EVN ---
Event Note - Event Note Event Note: Patient was seen at 1215 on 11/12/18 for Mag check. She is quietly sleeping in bed and easily awakens. She denies pain and has minimal bleeding. Incision clean and dry. She has had urine outputs of 75cc and 100 cc over the past 4 hours. Denies headache or vision changes. VS: Temp 97.9F, BP 144/86, HR 93, RR 14 O2 99% on RA Heart: RRR, Normal S1S2, no murmurs Lungs: CTA throughout all lobes Patellar reflexes 2+ bilaterally, Brachioradialis & Biceps reflexes are 3+ bilaterally. No Clonus present. We will continue to monitor and remain on current plan of care to continue Mag for 24hr after delivery. Next Mag check scheduled for 415AM. Will remain on ice chips for now. Addendum - Attending - Attending Attestation Date/Time: 11/12/18 8683 I evaluated the patient and discussed the management with Dr. Solorzano. I agree with the Assessment and Plan documented above.
[2018-11-12] MEDS ORDERED: NS / Oxytocin 40 units/1000ml 1,000 ML ONE (01:24)
--- NOTE | 2018-11-12 04:24 | PDOC.EVN ---
Event Note - Event Note Event Note: Patient was seen at 0415 on 11/12/18 for Mag check. She is resting quietly in bed. She denies pain at her incision site and has minimal bleeding. Incision covered with dry dressing. She has had urine outputs of 50 cc, 45 cc, and 40 cc over the past 4 hours. Denies headache or vision changes. VS: BP 124/77, HR 99, RR 16 Heart: RRR, Normal S1S2, no murmurs Lungs: CTA throughout all lobes Patellar reflexes 2+ bilaterally, Brachioradialis reflexes are 3+ bilaterally. No clonus observed. We will continue to monitor and remain on current plan of care to continue Mag for 24hr after delivery. Next Mag check scheduled for 815AM. Addendum - Attending - Attending Attestation Date/Time: 11/12/18 4745 I personally evaluated the patient and discussed the management with Dr. Solorzano. I agree with the Assessment and Plan documented above.
--- NOTE | 2018-11-12 06:49 | PDOC.LDPN ---
Labor & Delivery Progress Note - Assessment (1) Chronic hypertension affecting Code(s): O10.919 - UNSP PRE-EXISTING HTN COMP , UNSP TRIMESTER Current Visit: No Status: Acute (2) Drug abuse during Code(s): O99.320 - DRUG USE COMPLICATING , UNSPECIFIED TRIMESTER; F19.10 - OTHER PSYCHOACTIVE SUBSTANCE ABUSE, UNCOMPLICATED Current Visit: No Status: Acute (3) GBS (group B Streptococcus carrier), +RV culture, currently Code(s): O99.820 - STREPTOCOCCUS B CARRIER STATE COMPLICATING Current Visit: No Status: Acute (4) Iron deficiency anemia during Code(s): O99.019 - ANEMIA COMPLICATING , UNSPECIFIED TRIMESTER; D50.9 - IRON DEFICIENCY ANEMIA, UNSPECIFIED Current Visit: No Status: Acute (5) Trichomonosis Current Visit: No Status: Acute
[2018-11-12] MEDS: Magnesium Sulfate 20 gm/500 ml 20 GM/500 ML BAG IVPB SCH (07:56)
--- NOTE | 2018-11-12 08:01 | PDOC.PP ---
Post Progress Note Post Day #: 1 Subjective: Ms. Galarza is doing well today. She voices no concerns pertaining to her health at this time. Overnight she had issues with unwelcomed guests attempting to see her and baby. PO intake tolerated: yes Ambulation: no (Has not gotten up with casper cath in) Weight Weight 73.936 kg - Physical Examination General: NAD Cardiovascular: no m/r/g, RRR Respiratory: clear to auscultation bilaterally, non-labored breathing Abdominal: + bowel sounds, no distention, appropriately TTP Deviation from normal: no LE swelling Skin: CS incision dry & intact, no rash Neurological: no gross focal deficits Psychiatric: A&Ox3 Result Diagrams: 11/11/18 13:06 11/11/18 13:06 Additional Labs: Post Labs Blood Type B POSITIVE 11/11/18 13:06 Hep Bs Antigen Non-Reactive S/CO (NonReactive) 11/11/18 13:06 (1) Chronic hypertension affecting Code(s): O10.919 - UNSP PRE-EXISTING HTN COMP , UNSP TRIMESTER Status : Acute (2) Drug abuse during Code(s): O99.320 - DRUG USE COMPLICATING , UNSPECIFIED TRIMESTER; F19.10 - OTHER PSYCHOACTIVE SUBSTANCE ABUSE, UNCOMPLICATED Status: Acute (3) GBS (group B Streptococcus carrier), +RV culture, currently Code(s): O99.820 - STREPTOCOCCUS B CARRIER STATE COMPLICATING Status : Acute (4) Iron deficiency anemia during Code(s): O99.019 - ANEMIA COMPLICATING , UNSPECIFIED TRIMESTER; D50.9 - IRON DEFICIENCY ANEMIA, UNSPECIFIED Status: Acute (5) Trichomonosis Status: Acute - Assessment/Plan # ; No signs of distress, DVT. Incision looks fine. - remove casper cath - bottlefeeding - discuss circumcision risks - discuss post blues # IUP at 35.6 Weeks with previous C-Sections x 2 # Chronic Hypertension w/ Severe Range Pressures during Followed by MFM who saw pt today and recommended which was performed . No seizure activity or severe features. - LR 125 mls/hr IV - Mg 4g loading, 2g/hr maintenance; continue mg checks - start pre- HCTZ 25 mg PO daily. # GBS Positive on 10/26/18 - Patient will receive ancef prior to C/S - Will monitor infant for 48 hours # Hx of Trichomonosis - finished 11/02 treatment - will need ERICA, consider prior to d/c # Anemia of - On iron supplementation # THC abuse in - Positive drug test Disposition: Admit to L&D. BP control with PRN BP medications. Continue mg checks .
[2018-11-12] MEDS ORDERED: Hydrochlorothiazide 25 MG TAB PO SCH (12:00)
--- NOTE | 2018-11-12 13:30 | PDOC.EVN ---
Event Note - Event Note Event Note: 4.5 hour dtr check - 2/4 Patellar and 2/4 brachioradialis 2/4. Good urine output in bag.
[2018-11-12] MEDS: Lactated Ringer's 1,000 ML IV SCH (14:53)
[2018-11-12] MEDS ORDERED: Acetaminophen 325 MG TAB PO PRN (16:23)
[2018-11-12] MEDS ORDERED: HYDROcodone/Acetaminophen 5/325 mg Tablet PO PRN (16:23)
[2018-11-12] MEDS ORDERED: Lanolin Ointment 7 GM TUBE TOP PRN (16:23)
[2018-11-12] MEDS ORDERED: NS / Oxytocin 40 units/1000ml 1,000 ML IV SCH (16:23)
[2018-11-12] MEDS ORDERED: Simethicone Chewable 80 MG TAB PO PRN (16:23)
[2018-11-12] MEDS ORDERED: Bisacodyl 10 MG SUPP PR PRN (16:23)
[2018-11-12] MEDS ORDERED: Adacel (T-DAP) 0.5 ML SYRINGE IM ONE (16:23)
[2018-11-12] MEDS ORDERED: hydrALAZINE 20 MG/ML VIAL SLOW IVP PRN (16:23)
[2018-11-12] MEDS ORDERED: Ondansetron PF 4 MG/2 ML Vial IVP PRN (16:23)
[2018-11-12] MEDS ORDERED: Sodium Chloride 0.9% 10 ML ONE (20:52)
[2018-11-12] MEDS: Prenatal Vitamin 1 TAB PO SCH (21:00)
[2018-11-12] MEDS: HYDROcodone/Acetaminophen 5/325 mg Tablet PO PRN (21:10)
[2018-11-12] MEDS: Ibuprofen 800 MG TAB PO SCH ×2 (21:10)
[2018-11-13] MEDS: Ferrous Sulfate 325 MG TAB PO SCH ×4 (00:13→21:22)
[2018-11-13] MEDS: Ibuprofen 800 MG TAB PO SCH ×3 (05:07→21:24)
--- NOTE | 2018-11-13 06:56 | PDOC.PP ---
Post Progress Note Post Day #: 2 Subjective: 33 yo ->2122 pp day 2 s/p rLTCS 2/2 cHTN with superimposed preeclampsia with severe features. Pt doing well and pain currently well controlled. She denies headache, changes in vision, NVDC, ruq/epigastric pain. Occasional incisional pain. PO intake tolerated: yes Flatus: yes Ambulation: yes Vital Signs (12 hours) Temp Pulse Resp BP Pulse Ox 11/13/18 05:05 98.7 F 88 18 131/88 11/13/18 00:55 98.6 F 90 18 127/80 11/12/18 20:55 98.4 F 97 18 134/85 98 Weight Weight 73.936 kg - Physical Examination General: NAD Cardiovascular: no m/r/g, RRR Respiratory: clear to auscultation bilaterally, non-labored breathing Abdominal: + bowel sounds, no distention, appropriately TTP Skin: CS incision dry & intact Neurological: no gross focal deficits Psychiatric: normal affect Result Diagrams: 11/13/18 07:57 11/11/18 13:06 Additional Labs: Post Labs Blood Type B POSITIVE 11/11/18 13:06 Hep Bs Antigen Non-Reactive S/CO (NonReactive) 11/11/18 13:06 (1) Pre-eclampsia added to pre-existing hypertension Code(s): O11.9 - PRE-EXISTING HYPERTENSION WITH PRE-ECLAMPSIA, UNSP TRIMESTER Status: Acute (2) Chronic hypertension affecting Code(s): O10.919 - UNSP PRE-EXISTING HTN COMP , UNSP TRIMESTER Status : Acute (3) Iron deficiency anemia during Code(s): O99.019 - ANEMIA COMPLICATING , UNSPECIFIED TRIMESTER; D50.9 - IRON DEFICIENCY ANEMIA, UNSPECIFIED Status: Acute - Assessment/Plan # ; - pt ambulating and recovering well - cont routine pp care # Chronic Hypertension w/ superimposed preeclampsia repeat CS done 11/11 blood pressures have been controlled >24 hours and currently asymptomatic # Anemia of - On iron supplementation Disposition: Obs throughout the day and continue HCTZ for chronic HTN. Likely DC to home later today. Consider B&B vs continue BP monitoring if baby requires lights. Addendum - Attending - Attending Attestation Date/Time: 11/14/18 0911 I personally evaluated the patient and discussed the management with Dr. Oconnor I agree with the History, Examination, Assessment and Plan documented above with any addition or exceptions noted below. Pt will stay for another day for monitoring. Anticipate Discharge tomorrow.
[2018-11-13 08:05] LABS: Hemoglobin 11.4 g/dL (12.0-16.0); Mean Corpuscular HGB CONC 31.3 g/dL (32.0-36.0); Mean Corpuscular Hemoglobin 26.9 pg (27.0-31.0); Mean Platelet Volume 7.8 fL (7.4-10.4); Platelet Count 277 thou/uL (130-400); RBC Distribution Width 20.2 % (11.5-14.5); Red Blood Cell (RBC) Count 4.23 mill/uL (4.20-5.40); White Blood Cell (WBC) Count 10.8 thou/uL (4.8-10.8)
[2018-11-13] MEDS: Hydrochlorothiazide 25 MG TAB PO SCH (09:47)
[2018-11-13] MEDS: Prenatal Vitamin 1 TAB PO SCH (09:47)
[2018-11-13] MEDS: Lactated Ringer's 1,000 ML IV SCH ×2 (15:35→15:37)
[2018-11-14] MEDS: HYDROcodone/Acetaminophen 5/325 mg Tablet PO PRN ×3 (04:34→13:00)
[2018-11-14] MEDS: Ibuprofen 800 MG TAB PO SCH (06:21)
--- NOTE | 2018-11-14 07:05 | PDOC.PP ---
Post Progress Note Post Day #: 3 Subjective: 33 yo pp day 3 s/p rLTCS. Pt doing well no complaints. No fever, chills , NVDC, cp, SOB, headache, changes in vision. PO intake tolerated: yes Flatus: yes Ambulation: yes Vital Signs (12 hours) Temp Pulse Resp BP Pulse Ox 11/14/18 04:31 98.0 F 90 20 140/94 H 11/13/18 20:03 98.8 F 94 18 135/90 98 Weight Weight 73.936 kg - Physical Examination General: NAD Cardiovascular: no m/r/g, RRR Respiratory: clear to auscultation bilaterally, non-labored breathing Abdominal: + bowel sounds, no distention, appropriately TTP Extremities: negative homans (B) Skin: CS incision dry & intact, no rash Neurological: no gross focal deficits Psychiatric: normal affect Result Diagrams: 11/13/18 07:57 11/11/18 13:06 Additional Labs: Post Labs Blood Type B POSITIVE 11/11/18 13:06 Hep Bs Antigen Non-Reactive S/CO (NonReactive) 11/11/18 13:06 (1) Pre-eclampsia added to pre-existing hypertension Code(s): O11.9 - PRE-EXISTING HYPERTENSION WITH PRE-ECLAMPSIA, UNSP TRIMESTER Status: Acute (2) Chronic hypertension affecting Code(s): O10.919 - UNSP PRE-EXISTING HTN COMP , UNSP TRIMESTER Status : Acute (3) Iron deficiency anemia during Code(s): O99.019 - ANEMIA COMPLICATING , UNSPECIFIED TRIMESTER; D50.9 - IRON DEFICIENCY ANEMIA, UNSPECIFIED Status: Acute - Assessment/Plan # ; - pt ambulating and recovering well - BP remains stable with use of HCTZ - plan for DC this afternoon - f/u [facility] Thursday for staple removal # Chronic Hypertension w/ superimposed preeclampsia repeat CS done 11/11 blood pressures have been controlled >24 hours and currently asymptomatic remains asymptomatic, plan for DC to home today # Anemia of - On iron supplementation, rx sent Disposition: BP remains stable. Plan for DC to home today and f/u @ [facility] by thursday.
[2018-11-14] MEDS: Hydrochlorothiazide 25 MG TAB PO SCH (08:00)
[2018-11-14] MEDS: Prenatal Vitamin 1 TAB PO SCH (08:00)
[2018-11-14] MEDS: Ferrous Sulfate 325 MG TAB PO SCH (11:46)
[2018-11-14 12:27] VITALS: BP 100/56; TEMP 98.2
== END 2018-11-14 13:45 | disposition home or self-care (01) | DRG 787 ==
LOC: L&D/OP 12:00 → L&D 13:33 → 3SW 11-12 18:36
PROVIDERS: ADMIT Obstetrics & Gynecology; ATTEND Obstetrics & Gynecology
PROC: 10D00Z1 Extraction of Products of Conception, Low, Open Approach (ICD-10-PCS; principal; 2018-11-11)
DX: O34.211 Maternal care for low transverse scar from previous cesarean delivery (principal); O10.02 Pre-existing essential hypertension complicating childbirth; O99.324 Drug use complicating childbirth; O11.4 Pre-existing hypertension with pre-eclampsia, complicating childbirth; F12.90 Cannabis use, unspecified, uncomplicated; O99.824 Streptococcus B carrier state complicating childbirth; O99.02 Anemia complicating childbirth; D50.9 Iron deficiency anemia, unspecified; Z3A.35 35 weeks gestation of pregnancy; Z37.0 Single live birth
CPT/HCPCS: 36415; 80053; 81003; 82570; 82805; 84156; 85027; 86780; 86850; 86900; 86901; 87340; 88307; 90715; J0360; J0690; J1100; J1885; J2001; J2274; J2370; J2405; J2590; J3010; J3475

== ENCOUNTER 2019-06-27 11:24 | Emergency (ER) | payer OTHER ==
[2019-06-27] MEDS ORDERED: Ondansetron ODT 4 MG TAB ONE (12:07)
[2019-06-27] MEDS ORDERED: Acetaminophen 500 MG TAB ONE (12:07)
--- NOTE | 2019-06-27 12:56 | RAD ---
EXAM: Chest 2 views: HISTORY: Cough COMPARISON: 10/02/2015 FINDINGS: There is a normal-sized cardiomediastinal silhouette. There is no evidence of consolidation, mass, or pleural effusion. There is scoliotic curvature of the spine. IMPRESSION: No evidence of acute cardiopulmonary disease
[2019-06-27] MEDS ORDERED: Dexamethasone 10 MG/ML VIAL ONE (13:26)
== END 2019-06-27 13:33 | disposition home or self-care (01) ==
LOC: ERS 11:24
DX: J06.9 Acute upper respiratory infection, unspecified (principal); B34.9 Viral infection, unspecified; I10 Essential (primary) hypertension; Z87.891 Personal history of nicotine dependence; Z79.899 Other long term (current) drug therapy
CPT/HCPCS: 71046; 87804; 94640; 96372; J1100; Q0162

== ENCOUNTER 2019-06-29 07:43 | Emergency (ER) | payer OTHER ==
[2019-06-29] MEDS ORDERED: Ondansetron ODT 4 MG TAB ONE (08:23)
[2019-06-29 08:57] LABS: Pregnancy Test - Urine (BHCG) Negative (Negative)
[2019-06-29 08:58] LABS: Pregu Control Background? CLEAR/WHITE (CLR/WHITE); Pregu Control Bar Appear? YES (CONTROL BAR)
[2019-06-29 09:15] LABS: Bilirubin Negative (Negative); Blood, Urine Negative (Negative); Clarity Clear (Clear); Glucose, Urine (Dipstick) Normal (Negative); Leukocyte Negative Leu/uL (Negative); Nitrite Negative (Negative); Protein, Urine (Dipstick) 300 mg/dL (Neg-Trace); Squamous Epithelial 0-3 HPF (0-3); Urobilinogen Normal mg/dL (Less than 2); WBC/HPF 0-3 HPF (0-3)
[2019-06-29 09:16] LABS: Bacteria/HPF 1+ HPF (None Seen)
== END 2019-06-29 09:45 | disposition home or self-care (01) ==
LOC: ERS 07:43
DX: R11.2 Nausea with vomiting, unspecified (principal); I10 Essential (primary) hypertension; Z87.891 Personal history of nicotine dependence
CPT/HCPCS: 81003; 81015; 81025; 99284; Q0162

== ENCOUNTER 2020-04-28 08:05 | Emergency (ER) | payer MEDICAID, SELFPAY ==
[2020-04-28 16:25] LABS: SARS-CoV-2 MS2 Positive; SARS-CoV-2 N Gene Negative; SARS-CoV-2 S Gene Negative; SARS-CoV-2 by NAA Not Detected (NotDetected); SARS-CoV-2 orf1ab Negative
== END 2020-04-28 10:05 | disposition home or self-care (01) ==
LOC: ERS 08:05
DX: M79.10 Myalgia, unspecified site (principal); R05 Cough; R19.7 Diarrhea, unspecified; R11.2 Nausea with vomiting, unspecified; I10 Essential (primary) hypertension; Z87.891 Personal history of nicotine dependence; Z20.828 Contact with and (suspected) exposure to other viral communicable diseases
CPT/HCPCS: 87635; 99283; U0003

== ENCOUNTER 2020-06-28 10:28 | Emergency (ER) | payer SELFPAY ==
[2020-06-28 10:58] LABS: Bilirubin Negative (Negative); Blood, Urine Negative (Negative); Clarity Turbid (Clear); Glucose, Urine (Dipstick) Normal (Negative); Ketone, Urine Negative (Negative); Leukocyte Negative Leu/uL (Negative); Nitrite Negative (Negative); Protein, Urine (Dipstick) 30 mg/dL (Neg-Trace); Specific Gravity, Urine 1.021 (1.002-1.036); Urobilinogen Normal mg/dL (Less than 2); pH, Urine 7.5 (5.0-9.0)
[2020-06-28 11:04] LABS: #Basophils 0.1 thou/uL (0.0-0.2); #Eosinphils 0.1 thou/uL (0.0-0.7); #Lymphocytes 1.8 thou/uL (1.20-3.40); #Monocytes 0.5 thou/uL (0.11-0.59); #Neutrophils 3.2 thou/uL (1.40-6.50); %Eosinophils 1.8 % (0.0-10.0); %Monocytes 9.4 % (0.0-10.0); %Neutrophils 55.7 % (42.0-75.0); Mean Corpuscular HGB CONC 30.3 g/dL (32.0-36.0); Mean Corpuscular Hemoglobin 22.9 pg (27.0-31.0); Mean Corpuscular Volume 75.5 fL (78.0-98.0); Mean Platelet Volume 7.5 fL (7.4-10.4); Platelet Count 411 thou/uL (130-400); Red Blood Cell (RBC) Count 4.38 mill/uL (4.20-5.40); White Blood Cell (WBC) Count 5.8 thou/uL (4.8-10.8)
[2020-06-28 11:07] LABS: Pregnancy Test - Urine (BHCG) POSITIVE (Negative); Pregu Control Background? CLEAR/WHITE (CLR/WHITE); Pregu Control Bar Appear? YES (CONTROL BAR); Specific Gravity 1.021 (1.002-1.036)
[2020-06-28 11:11] LABS: Bacteria/HPF 4+ HPF (None Seen); RBC/HPF 0-3 HPF (0-3); Squamous Epithelial 21-50 HPF (0-3); WBC/HPF 0-3 HPF (0-3)
[2020-06-28 11:22] LABS: ALT (SGPT) 9 U/L (8-55); AST (SGOT) 25 U/L (5-34); Albumin 4.4 g/dL (3.5-5.0); Alkaline Phosphatase 55 U/L (40-110); Anion Gap 14 mmol/L (10-20); BUN (Urea Nitrogen) 5 mg/dL (7.0-18.7); Bilirubin, Total 0.4 mg/dL (0.2-1.2); Calc. Creatinine Clearance 0 mL/min (70-130); Calcium 8.9 mg/dL (7.8-10.44); Carbon Dioxide 22 mmol/L (22-29); Chloride 103 mmol/L (98-107); Globulin 3.2 g/dL (2.4-3.5); Glucose 89 mg/dL (70-105); Lipase 33 U/L (8-78); Protein, Total 7.6 g/dL (6.0-8.3); Sodium 136 mmol/L (136-145)
--- NOTE | 2020-06-28 11:58 | ULT ---
ULTRASOUND PELVIC DOPPLER DUPLEX: DATE: 06/28/2020 HISTORY: 34-year-old female with pelvic pain TECHNIQUE: Transabdominal transducer used to visualize intrapelvic contents with grayscale, color-flow, and spec tral analysis. Endovaginal transducer not used. FINDINGS: Intrauterine gestational sac with mean sac diameter of 0.9 cm, corresponding to 5 weeks 5 days gestat ional age. Yolk sac visualized. No pole visualized. No subchorionic hemorrhage. 2 cm right ovarian cyst may represent a corpus luteal cyst. Blood flow demonstrated in bilateral ovarian parenchyma. Bilateral ovaries normal in size. No free fluid in cul-de-sac. IMPRESSION: Intrauterine gestational sac with yolk sac but no embryonic pole. Recommend follow-up pelvic and transvaginal ultrasound in 11 days.
== END 2020-06-28 13:05 | disposition home or self-care (01) ==
LOC: ERS 10:28
DX: O26.891 Other specified pregnancy related conditions, first trimester (principal); R10.31 Right lower quadrant pain; R10.32 Left lower quadrant pain; O13.1 Gestational [pregnancy-induced] hypertension without significant proteinuria, first trimester; O99.331 Smoking (tobacco) complicating pregnancy, first trimester; F17.210 Nicotine dependence, cigarettes, uncomplicated; Z3A.01 Less than 8 weeks gestation of pregnancy
CPT/HCPCS: 36415; 76856; 80053; 81003; 81015; 81025; 83690; 84702; 85025; 86900; 86901; 93976

== ENCOUNTER 2020-07-02 09:04 | Emergency (ER) | payer SELFPAY ==
[2020-07-02 09:52] LABS: #Eosinphils 0.1 thou/uL (0.0-0.7); #Lymphocytes 1.5 thou/uL (1.20-3.40); #Monocytes 0.7 thou/uL (0.11-0.59); #Neutrophils 3.5 thou/uL (1.40-6.50); %Basophils 0.4 % (0.0-1.0); %Lymphocytes 26.5 % (21.0-51.0); %Monocytes 12.6 % (0.0-10.0); %Neutrophils 59.5 % (42.0-75.0); Hemoglobin 10.5 g/dL (12.0-16.0); Mean Corpuscular Hemoglobin 23.5 pg (27.0-31.0); Mean Corpuscular Volume 75.8 fL (78.0-98.0); Mean Platelet Volume 7.4 fL (7.4-10.4); Platelet Count 418 thou/uL (130-400); RBC Distribution Width 18.2 % (11.5-14.5); Red Blood Cell (RBC) Count 4.45 mill/uL (4.20-5.40); White Blood Cell (WBC) Count 5.8 thou/uL (4.8-10.8)
[2020-07-02] MEDS ORDERED: Acetaminophen 325 MG TAB ONE (10:00)
[2020-07-02] MEDS ORDERED: Metoclopramide HCl 10 MG/2 ML VIAL ONE (10:00)
[2020-07-02 10:18] LABS: ALT (SGPT) 17 U/L (8-55); AST (SGOT) 30 U/L (5-34); Albumin 4.6 g/dL (3.5-5.0); Alkaline Phosphatase 66 U/L (40-110); Anion Gap 16 mmol/L (10-20); BUN (Urea Nitrogen) 9 mg/dL (7.0-18.7); Bilirubin, Total 0.4 mg/dL (0.2-1.2); Calc. Creatinine Clearance 0 mL/min (70-130); Calcium 9.5 mg/dL (7.8-10.44); Carbon Dioxide 23 mmol/L (22-29); Chloride 102 mmol/L (98-107); Globulin 3.6 g/dL (2.4-3.5); Glucose 89 mg/dL (70-105); Magnesium 1.8 mg/dL (1.6-2.6); Potassium 3.7 mmol/L (3.5-5.1); Protein, Total 8.2 g/dL (6.0-8.3); Sodium 137 mmol/L (136-145)
--- NOTE | 2020-07-02 10:52 | ULT ---
TRANSABDOMINAL PELVIC ULTRASOUND: INDICATION: History of right lower quadrant abdominal pain and . COMPARISON: Prior exam dated 06/28/2020. TECHNIQUE: Dubose scale, color Doppler, and spectral Doppler images were obtained of the pelvis via transabdominal transvaginal approach. FINDINGS: There is a single intrauterine gestational sac containing a pole and yolk sac. The yolk sac me asures 1.7 mm. The crown-rump is 3.3 mm giving an estimated gestational age of 6 weeks and 0 days. Clinical age was 7 weeks and 6 days. Estimated due date by ultrasound is 02/25/2021 with a clinical age of 1002/12/2021. No heart tones were visualized. There is a small right ovarian cyst that is slightly smaller than on the prior examination now measur ing approximately 1.6 x 1.2 x 1.3 cm where previously it measured 1.7 cm to 2 cm in size. The uterus measured 4.0 x 6.2 x 9.4 cm. The right ovary measured 2.5 x 2.2 cm. The left ovary measu red 2.1 x 2.6 cm. There is normal flow to both ovaries. No free fluid is evident. IMPRESSION: 1. Single intrauterine gestation with a yolk and pole now identified. Continued followup is r ecommended. 2. No evidence of subchorionic hemorrhage. 3. Right ovarian corpus luteal cyst. POS: [facility]
== END 2020-07-02 11:30 | disposition home or self-care (01) ==
LOC: ERS 09:04
DX: O34.81 Maternal care for other abnormalities of pelvic organs, first trimester (principal); N83.201 Unspecified ovarian cyst, right side; O21.9 Vomiting of pregnancy, unspecified; Z3A.01 Less than 8 weeks gestation of pregnancy; O13.1 Gestational [pregnancy-induced] hypertension without significant proteinuria, first trimester; O99.331 Smoking (tobacco) complicating pregnancy, first trimester; Z87.891 Personal history of nicotine dependence
CPT/HCPCS: 76856; 80053; 83735; 84702; 85025; 93976; 94760; 96365; J2765

== ENCOUNTER 2020-07-24 11:38 | Emergency (ER) | payer MEDICAID, SELFPAY | END 2020-07-24 17:05 | disposition home or self-care (01) | LOC: ERS 11:38 | DX: O99.891 Other specified diseases and conditions complicating pregnancy (principal); O10.911 Unspecified pre-existing hypertension complicating pregnancy, first trimester; R93.5 Abnormal findings on diagnostic imaging of other abdominal regions, including retroperitoneum; Z3A.10 10 weeks gestation of pregnancy; Z87.891 Personal history of nicotine dependence | CPT/HCPCS: 36415; 76815; 84702 ==

== ENCOUNTER 2020-07-26 16:11 | Emergency (ER) | payer MEDICAID, SELFPAY ==
[2020-07-26 17:59] LABS: #Basophils 0.1 thou/uL (0.0-0.2); #Eosinphils 0.1 thou/uL (0.0-0.7); #Lymphocytes 2.8 thou/uL (1.20-3.40); #Monocytes 0.6 thou/uL (0.11-0.59); #Neutrophils 5.2 thou/uL (1.40-6.50); %Basophils 1.5 % (0.0-1.0); %Eosinophils 0.8 % (0.0-10.0); %Lymphocytes 31.7 % (21.0-51.0); %Monocytes 7.3 % (0.0-10.0); %Neutrophils 58.6 % (42.0-75.0); Hemoglobin 11.4 g/dL (12.0-16.0); Mean Corpuscular HGB CONC 31.8 g/dL (32.0-36.0); Mean Corpuscular Hemoglobin 24.4 pg (27.0-31.0); Mean Corpuscular Volume 76.7 fL (78.0-98.0); Mean Platelet Volume 7.8 fL (7.4-10.4); Platelet Count 480 thou/uL (130-400); RBC Distribution Width 20.1 % (11.5-14.5); Red Blood Cell (RBC) Count 4.68 mill/uL (4.20-5.40); White Blood Cell (WBC) Count 8.8 thou/uL (4.8-10.8)
== END 2020-07-26 18:59 | disposition home or self-care (01) ==
LOC: ERS 16:11
DX: O03.9 Complete or unspecified spontaneous abortion without complication (principal); I10 Essential (primary) hypertension; Z87.891 Personal history of nicotine dependence
CPT/HCPCS: 36415; 84702; 85025; 86850; 86900; 86901; 99284

== ENCOUNTER 2021-05-25 18:52 | Emergency (ER) | payer MEDICAID, SELFPAY | END 2021-05-25 19:58 | disposition home or self-care (01) | LOC: ERS 18:52 | DX: T78.3XXA Angioneurotic edema, initial encounter (principal) | CPT/HCPCS: 99282 ==

== ENCOUNTER 2021-12-02 19:05 | Observation (INO) | payer MEDICAID, OTHER ==
[~2021-12-02 19:05] MED LIST: Iopamidol-370 76% 500 ML 1 ML ONE
[2021-12-02 20:10] LABS: #Lymphocytes 1.5 thou/uL (1.20-3.40); #Monocytes 0.7 thou/uL (0.11-0.59); #Neutrophils 5.2 thou/uL (1.40-6.50); %Basophils 0.4 % (0.0-1.0); %Lymphocytes 19.7 % (21.0-51.0); %Neutrophils 69.9 % (42.0-75.0); Hemoglobin 10.7 g/dL (12.0-16.0); Mean Corpuscular HGB CONC 30.7 g/dL (32.0-36.0); Mean Corpuscular Hemoglobin 22.3 pg (27.0-31.0); Mean Corpuscular Volume 72.5 fL (78.0-98.0); Mean Platelet Volume 7.5 fL (7.4-10.4); Platelet Count 546 thou/uL (130-400); White Blood Cell (WBC) Count 7.4 thou/uL (4.8-10.8)
[2021-12-02 20:21] LABS: Anisocytosis SLIGHT = 6-15 cells (100X) (0-5/hpf); Hypochromia SLIGHT = 6-15 cells (100X) (0-5/hpf); MDiff Complete? YES; Microcytosis SLIGHT = 6-15 cells (100X) (0-5/hpf); Ovalocytes SLIGHT = 2-5 cells (100X) (0-1/hpf); Platelet Morphology Comment Appears Increased; Polychromasia SLIGHT = 2-3 cells (100X) (0-2/hpf); Target Cells SLIGHT = 2-5 cells (100X) (0-1/hpf)
[2021-12-02 20:23] LABS: BHCG - Serum Negative (NEGATIVE); Pregs Control Background? CLEAR/WHITE (CLR/WHITE); Pregs Control Bar Appear? YES (CONTROL BAR)
[2021-12-02 20:31] LABS: ALT (SGPT) 12 U/L (8-55); AST (SGOT) 32 U/L (5-34); Albumin 4.7 g/dL (3.5-5.0); Alkaline Phosphatase 61 U/L (40-110); Anion Gap 16 mmol/L (10-20); BUN (Urea Nitrogen) 9 mg/dL (7.0-18.7); Bilirubin, Total 0.5 mg/dL (0.2-1.2); CK (CPK) 105 U/L (29-168); Calc. Creatinine Clearance 0 mL/min (70-130); Calcium 10.1 mg/dL (7.8-10.44); Carbon Dioxide 27 mmol/L (22-29); Chloride 99 mmol/L (98-107); Estimated GFR 96; Globulin 3.8 g/dL (2.4-3.5); Glucose 97 mg/dL (70-105); Protein, Total 8.5 g/dL (6.0-8.3); Sodium 139 mmol/L (136-145)
[2021-12-02] MEDS ORDERED: Aspirin Chewable 81 MG TAB ONE (22:23)
[2021-12-02] MEDS ORDERED: Potassium Chloride 20 MEQ TAB ONE ×2 (22:23→22:28)
[2021-12-03 01:06] VITALS: BMI 26.7
[2021-12-03] MEDS ORDERED: Amlodipine 5 MG TAB PO SCH (09:00)
[2021-12-03] MEDS ORDERED: Acetaminophen 325 MG TAB PO PRN (09:49)
[2021-12-03] MEDS ORDERED: Ondansetron ODT 4 MG TAB PO PRN (09:49)
[2021-12-03] MEDS ORDERED: hydrALAZINE 20 MG/ML VIAL SLOW IVP PRN (09:57)
[2021-12-03] MEDS ORDERED: Electrolyte Replacement Protocol 1 EACH FS SCH (10:00)
[2021-12-03 13:46] LABS: Amphetamine Not Detected (NotDetected); Barbiturates Screen Not Detected (NotDetected); Benzodiazepine Screen Not Detected (NotDetected); Cocaine Metabolite Screen Not Detected (NotDetected); Methadone Not Detected (NotDetected); Methamphetamine Not Detected (NotDetected); Opiate Screen Not Detected (NotDetected); Oxycodone Screen Not Detected (NotDetected); Phencyclidine (PCP) Not Detected (NotDetected); THC/Cannabinoid Screen Detected (NotDetected); Tricyclic Screen Not Detected (NotDetected)
[2021-12-03] MEDS ORDERED: Magnesium 2 GM/50 ML(in water) 2 GM in Premix Bag 1 BAG IVPB SCH (14:00)
[2021-12-03] MEDS ORDERED: Potassium Chloride 20 MEQ TAB PO SCH (14:00)
[2021-12-03 15:38] VITALS: BP 152/90; TEMP 98.1
[2021-12-03 18:06] LABS: Potassium 3.2 mmol/L (3.5-5.1)
[2021-12-04] MEDS ORDERED: Hydrochlorothiazide 25 MG TAB PO SCH (09:00)
== END 2021-12-03 18:13 | disposition home or self-care (01) ==
LOC: ERS 19:05 → 2SW 23:54
PROVIDERS: ADMIT Student in an Organized Health Care Education/Training Program; ATTEND Student in an Organized Health Care Education/Training Program
DX: R42 Dizziness and giddiness (principal); R55 Syncope and collapse; I11.9 Hypertensive heart disease without heart failure; E87.6 Hypokalemia; D50.9 Iron deficiency anemia, unspecified; R94.31 Abnormal electrocardiogram [ECG] [EKG]; I08.1 Rheumatic disorders of both mitral and tricuspid valves; F12.11 Cannabis abuse, in remission; Z91.14 Patient's other noncompliance with medication regimen; Z87.891 Personal history of nicotine dependence; Z79.899 Other long term (current) drug therapy; Z20.822 Contact with and (suspected) exposure to COVID-19
CPT/HCPCS: 36415; 71275; 80053; 80306; 82550; 83735; 84132; 84443; 84484; 84703; 85025; 85379; 93005; 93306; 96374; G0378; J3475; Q9967; U0003; U0005

== ENCOUNTER 2022-03-18 20:01 | Emergency (ER) | payer OTHER ==
[2022-03-18 20:35] LABS: BHCG - Serum Negative (NEGATIVE); Pregs Control Background? CLEAR/WHITE (CLR/WHITE); Pregs Control Bar Appear? YES (CONTROL BAR)
[2022-03-18 20:40] LABS: #Monocytes 0.7 thou/uL (0.11-0.59); #Neutrophils 4.7 thou/uL (1.40-6.50); %Basophils 0.7 % (0.0-1.0); %Eosinophils 0.4 % (0.0-10.0); %Lymphocytes 27.1 % (21.0-51.0); %Monocytes 9.9 % (0.0-10.0); %Neutrophils 61.9 % (42.0-75.0); Mean Corpuscular HGB CONC 30.9 g/dL (32.0-36.0); Mean Corpuscular Hemoglobin 24.5 pg (27.0-31.0); Mean Corpuscular Volume 79.2 fl (78.0-98.0); Mean Platelet Volume 7.3 fL (7.4-10.4); Platelet Count 497 10x3/uL (130-400); RBC Distribution Width 17.1 % (11.5-14.5); Red Blood Cell (RBC) Count 4.51 mill/uL (4.20-5.40); White Blood Cell (WBC) Count 7.5 10x3/uL (4.8-10.8)
[2022-03-18] MEDS ORDERED: Ondansetron ODT 4 MG TAB ONE (20:41)
[2022-03-18 20:51] LABS: ALT (SGPT) 14 U/L (8-55); AST (SGOT) 29 U/L (5-34); Albumin 4.6 g/dL (3.5-5.0); Alkaline Phosphatase 67 U/L (40-110); Anion Gap 15 mmol/L (10-20); BUN (Urea Nitrogen) 9 mg/dL (7.0-18.7); Bilirubin, Total 0.3 mg/dL (0.2-1.2); Calc. Creatinine Clearance 0 mL/min (70-130); Carbon Dioxide 26 mmol/L (22-29); Chloride 99 mmol/L (98-107); Estimated GFR 114; Globulin 3.6 g/dL (2.4-3.5); Glucose 93 mg/dL (70-105); Potassium 2.7 mmol/L (3.5-5.1); Protein, Total 8.2 g/dL (6.0-8.3); Sodium 137 mmol/L (136-145)
[2022-03-18] MEDS ORDERED: Potassium Chloride 20 MEQ TAB ONE ×3 (21:09→21:20)
== END 2022-03-18 21:49 | disposition home or self-care (01) ==
LOC: ERS 20:01
DX: R42 Dizziness and giddiness (principal); E87.6 Hypokalemia; I10 Essential (primary) hypertension; F17.210 Nicotine dependence, cigarettes, uncomplicated
CPT/HCPCS: 36415; 80053; 84443; 84484; 84703; 85025; 93005; Q0162

== ENCOUNTER 2022-05-06 23:12 | Emergency (ER) | payer OTHER ==
[2022-05-06 23:37] LABS: #Eosinphils 0.1 thou/uL (0.0-0.7); #Lymphocytes 2.5 thou/uL (1.20-3.40); #Monocytes 0.6 thou/uL (0.11-0.59); #Neutrophils 4.9 thou/uL (1.40-6.50); %Basophils 0.4 % (0.0-1.0); %Eosinophils 0.6 % (0.0-10.0); %Lymphocytes 30.9 % (21.0-51.0); %Monocytes 7.7 % (0.0-10.0); %Neutrophils 60.3 % (42.0-75.0); Hemoglobin 11.3 g/dL (12.0-16.0); Mean Corpuscular HGB CONC 32.4 g/dL (32.0-36.0); Mean Corpuscular Hemoglobin 26.1 pg (27.0-31.0); Mean Corpuscular Volume 80.6 fl (78.0-98.0); Platelet Count 434 10x3/uL (130-400); RBC Distribution Width 16.8 % (11.5-14.5); Red Blood Cell (RBC) Count 4.34 mill/uL (4.20-5.40); White Blood Cell (WBC) Count 8.1 10x3/uL (4.8-10.8)
[2022-05-06 23:55] LABS: Calcium 9.6 mg/dL (7.8-10.44); Chloride 97 mmol/L (98-107); Sodium 134 mmol/L (136-145)
[2022-05-06 23:56] LABS: Bilirubin, Total 0.2 mg/dL (0.2-1.2)
[2022-05-07 00:10] LABS: ALT (SGPT) 7 U/L (8-55); AST (SGOT) 32 U/L (5-34); Albumin 4.5 g/dL (3.5-5.0); Alkaline Phosphatase 62 U/L (40-110); Anion Gap 18 mmol/L (10-20); BUN (Urea Nitrogen) 12 mg/dL (7.0-18.7); Calc. Creatinine Clearance 0 mL/min (70-130); Carbon Dioxide 24 mmol/L (22-29); Estimated GFR 98; Globulin 3.4 g/dL (2.4-3.5); Glucose 101 mg/dL (70-105); Protein, Total 7.9 g/dL (6.0-8.3)
[2022-05-07 00:14] LABS: Potassium 2.6 mmol/L (3.5-5.1)
== END 2022-05-07 02:40 | disposition left against medical advice (07) ==
LOC: ERS 23:12
DX: Z53.21 Procedure and treatment not carried out due to patient leaving prior to being seen by health care provider (principal)
CPT/HCPCS: 36415; 80053; 84484; 85025; 93005

== ENCOUNTER 2022-06-04 13:58 | Emergency (ER) | payer OTHER ==
[2022-06-04] MEDS ORDERED: Ketorolac Tromethamine 30 MG/ML VIAL ONE (14:21)
[2022-06-04] MEDS ORDERED: Diazepam 10 MG/2 ML SYRINGE ONE (14:21)
== END 2022-06-04 15:58 | disposition home or self-care (01) ==
LOC: ERS 13:58
DX: R10.9 Unspecified abdominal pain (principal)
CPT/HCPCS: 96372; 99283; J1885; J3360

== ENCOUNTER 2022-06-16 07:51 | Emergency (ER) | payer OTHER ==
[2022-06-16 08:36] LABS: #Eosinphils 0.1 thou/uL (0.0-0.7); #Lymphocytes 1.6 thou/uL (1.20-3.40); #Monocytes 0.7 thou/uL (0.11-0.59); #Neutrophils 4.2 thou/uL (1.40-6.50); %Basophils 0.5 % (0.0-1.0); %Eosinophils 1.3 % (0.0-10.0); %Lymphocytes 24.4 % (21.0-51.0); %Monocytes 9.9 % (0.0-10.0); Hemoglobin 12.9 g/dL (12.0-16.0); Mean Corpuscular HGB CONC 33.9 g/dL (32.0-36.0); Mean Corpuscular Hemoglobin 28.3 pg (27.0-31.0); Mean Corpuscular Volume 83.4 fl (78.0-98.0); Mean Platelet Volume 7.2 fL (7.4-10.4); Platelet Count 443 10x3/uL (130-400); RBC Distribution Width 16.9 % (11.5-14.5); Red Blood Cell (RBC) Count 4.55 mill/uL (4.20-5.40); White Blood Cell (WBC) Count 6.6 10x3/uL (4.8-10.8)
[2022-06-16 09:10] LABS: ALT (SGPT) 15 U/L (8-55); AST (SGOT) 37 U/L (5-34); Acetaminophen Less than 10.0 mcg/mL (10.0-30.0); Albumin 4.8 g/dL (3.5-5.0); Alcohol Less than 10 mg/dL (Less than 10); Alkaline Phosphatase 61 U/L (40-110); Anion Gap 14 mmol/L (10-20); BUN (Urea Nitrogen) 10 mg/dL (7.0-18.7); Bilirubin, Total 0.5 mg/dL (0.2-1.2); Calc. Creatinine Clearance 0 mL/min (70-130); Calcium 10.1 mg/dL (7.8-10.44); Carbon Dioxide 23 mmol/L (22-29); Chloride 101 mmol/L (98-107); Estimated GFR 102; Globulin 3.5 g/dL (2.4-3.5); Glucose 103 mg/dL (70-105); Protein, Total 8.3 g/dL (6.0-8.3); Salicylate Less than 8.0 mg/dL (15.0-30.0); Sodium 135 mmol/L (136-145)
[2022-06-16 09:26] LABS: BHCG - Serum Negative (NEGATIVE); Pregs Control Background? CLEAR/WHITE (CLR/WHITE); Pregs Control Bar Appear? YES (CONTROL BAR)
[2022-06-16] MEDS ORDERED: Potassium Chloride 20 MEQ TAB ONE ×2 (10:17→10:25)
[2022-06-16 10:55] LABS: Bilirubin Negative (Negative); Blood, Urine Negative (Negative); Clarity Clear (Clear); Glucose, Urine (Dipstick) Normal (Negative); Ketone, Urine Negative (Negative); Leukocyte Negative Leu/uL (Negative); Nitrite Negative (Negative); Protein, Urine (Dipstick) 20 mg/dL (Neg-Trace); Specific Gravity, Urine 1.017 (1.002-1.036); Urobilinogen Normal mg/dL (Less than 2); pH, Urine 7.5 (5.0-9.0)
[2022-06-16 11:03] LABS: Amphetamine Not Detected (NotDetected); Barbiturates Screen Not Detected (NotDetected); Benzodiazepine Screen Detected (NotDetected); Cocaine Metabolite Screen Not Detected (NotDetected); Methadone Not Detected (NotDetected); Methamphetamine Not Detected (NotDetected); Opiate Screen Not Detected (NotDetected); Oxycodone Screen Not Detected (NotDetected); Phencyclidine (PCP) Not Detected (NotDetected); THC/Cannabinoid Screen Detected (NotDetected); Tricyclic Screen Not Detected (NotDetected)
== END 2022-06-16 12:10 | disposition home or self-care (01) ==
LOC: ERS 07:51
DX: R51.9 Headache, unspecified (principal); I10 Essential (primary) hypertension
CPT/HCPCS: 36415; 70450; 80053; 80306; 80307; 81003; 84146; 84703; 85025; 94760

== ENCOUNTER 2023-01-08 13:19 | Emergency (ER) | payer OTHER, SELFPAY ==
[2023-01-08 13:50] LABS: Bacteria/HPF None Seen HPF (None Seen); Bilirubin Negative (Negative); Blood, Urine Negative (Negative); CAUTI Indications for Culture Dysuria,urgency,freq; Clarity Clear (Clear); Glucose, Urine (Dipstick) Normal (Negative); Ketone, Urine Negative (Negative); Leukocyte Negative Leu/uL (Negative); Nitrite Negative (Negative); Protein, Urine (Dipstick) 20 mg/dL (Neg-Trace); RBC/HPF 0-3 HPF (0-3); Specific Gravity, Urine 1.021 (1.002-1.036); Urobilinogen Normal mg/dL (Less than 2); WBC/HPF 0-3 HPF (0-3)
[2023-01-08 13:51] LABS: Pregnancy Test - Urine (BHCG) Negative (Negative); Pregu Control Background? CLEAR/WHITE (CLR/WHITE); Pregu Control Bar Appear? YES (CONTROL BAR); Specific Gravity 1.021 (1.002-1.036)
[2023-01-08 13:52] LABS: Urine Culture Reflex No No
[2023-01-08 13:53] LABS: #Eosinphils 0.1 thou/uL (0.0-0.7); #Monocytes 0.5 thou/uL (0.11-0.59); #Neutrophils 3.8 thou/uL (1.40-6.50); %Basophils 0.3 % (0.0-1.0); %Eosinophils 1.6 % (0.0-10.0); %Lymphocytes 30.8 % (21.0-51.0); %Monocytes 7.8 % (0.0-10.0); %Neutrophils 59.2 % (42.0-75.0); Hemoglobin 12.5 g/dL (12.0-16.0); Mean Corpuscular HGB CONC 33.8 g/dL (32.0-36.0); Mean Corpuscular Hemoglobin 29.3 pg (27.0-31.0); Mean Corpuscular Volume 86.9 fl (78.0-98.0); Mean Platelet Volume 8.8 fL (7.4-10.4); Platelet Count 431 10x3/uL (130-400); RBC Distribution Width 14.7 % (11.5-14.5); Red Blood Cell (RBC) Count 4.26 mill/uL (4.20-5.40); White Blood Cell (WBC) Count 6.4 10x3/uL (4.8-10.8)
[2023-01-08 14:42] LABS: ALT (SGPT) 10 U/L (8-55); AST (SGOT) 27 U/L (5-34); Albumin 4.3 g/dL (3.5-5.0); Alkaline Phosphatase 75 U/L (40-110); Anion Gap 9 mmol/L (10-20); BUN (Urea Nitrogen) 7 mg/dL (7.0-18.7); Bilirubin, Total 0.3 mg/dL (0.2-1.2); Calc. Creatinine Clearance 0 mL/min (70-130); Calcium 9.6 mg/dL (7.8-10.44); Carbon Dioxide 25 mmol/L (22-29); Chloride 108 mmol/L (98-107); Estimated GFR 96; Globulin 3.2 g/dL (2.4-3.5); Glucose 107 mg/dL (70-105); Lipase 49 U/L (8-78); Protein, Total 7.5 g/dL (6.0-8.3); Sodium 139 mmol/L (136-145)
[2023-01-08] MEDS ORDERED: Potassium Chloride 20 MEQ TAB ONE ×2 (14:47→14:52)
[2023-01-08] MEDS ORDERED: Acetaminophen 500 MG TAB ONE (14:47)
[2023-01-08] MEDS ORDERED: Ondansetron ODT 4 MG TAB ONE (14:47)
[2023-01-08 15:43] LABS: Troponin I Less than 0.010 ng/mL (< 0.028)
[2023-01-08 16:06] LABS: SARS-CoV-2 NAA Rapid Test Not Detected (NotDetected)
== END 2023-01-08 17:11 | disposition home or self-care (01) ==
LOC: ERS 13:19
DX: R56.9 Unspecified convulsions (principal); E87.6 Hypokalemia; R55 Syncope and collapse; I10 Essential (primary) hypertension; F17.210 Nicotine dependence, cigarettes, uncomplicated; Z20.822 Contact with and (suspected) exposure to COVID-19
CPT/HCPCS: 36415; 71045; 80053; 80177; 81001; 81025; 83690; 84484; 85025; 93005; Q0162

== ENCOUNTER 2023-06-20 17:44 | Inpatient (IN) | payer SELFPAY ==
[2023-06-20 18:22] LABS: #Eosinphils 0.1 thou/uL (0.0-0.7); #Monocytes 0.6 thou/uL (0.11-0.59); #Neutrophils 3.5 thou/uL (1.40-6.50); %Basophils 0.3 % (0.0-1.0); %Eosinophils 1.9 % (0.0-10.0); %Lymphocytes 31.2 % (21.0-51.0); %Monocytes 10.4 % (0.0-10.0); Hematocrit 39.7 % (36.0-47.0); Hemoglobin 13.4 g/dL (12.0-16.0); Mean Corpuscular HGB CONC 33.8 g/dL (32.0-36.0); Mean Corpuscular Hemoglobin 29.7 pg (27.0-31.0); Platelet Count 358 10x3/uL (130-400); RBC Distribution Width 14.1 % (11.5-14.5); Red Blood Cell (RBC) Count 4.51 mill/uL (4.20-5.40); White Blood Cell (WBC) Count 6.2 10x3/uL (4.8-10.8)
[2023-06-20 18:40] LABS: ALT (SGPT) 14 U/L (8-55); AST (SGOT) 33 U/L (5-34); Albumin 4.5 g/dL (3.5-5.0); Alkaline Phosphatase 69 U/L (40-110); Anion Gap 13 mmol/L (10-20); BUN (Urea Nitrogen) 8 mg/dL (7.0-18.7); Bilirubin, Total 0.2 mg/dL (0.2-1.2); Calc. Creatinine Clearance 0 mL/min (70-130); Calcium 9.4 mg/dL (7.8-10.44); Carbon Dioxide 20 mmol/L (22-29); Chloride 107 mmol/L (98-107); Estimated GFR 97; Globulin 3.5 g/dL (2.4-3.5); Glucose 83 mg/dL (70-105); Potassium 3.8 mmol/L (3.5-5.1); Sodium 136 mmol/L (136-145)
[2023-06-20] MEDS ORDERED: levETIRAcetam 500 MG (5 mL) VIAL ONE (18:58)
[2023-06-20 20:07] LABS: SARS-CoV-2 NAA Rapid Test Not Detected (NotDetected)
[2023-06-20] MEDS ORDERED: Ondansetron ODT 4 MG TAB SL PRN (21:15)
[2023-06-20] MEDS ORDERED: Ondansetron PF 4 MG/2 ML Vial IVP PRN (21:15)
[2023-06-20] MEDS ORDERED: Acetaminophen 325 MG TAB PO PRN (21:15)
[2023-06-20 21:17] VITALS: BMI 31.5
[2023-06-21] MEDS ORDERED: Ondansetron ODT 4 MG TAB PO PRN (00:46)
[2023-06-21] MEDS ORDERED: Calcium Carbonate 500 MG ChewTAB PO PRN (00:46)
[2023-06-21] MEDS ORDERED: Acetaminophen 325 MG TAB PO PRN (00:46)
[2023-06-21 03:56] LABS: #Eosinphils 0.2 thou/uL (0.0-0.7); #Monocytes 0.9 thou/uL (0.11-0.59); #Neutrophils 3.6 thou/uL (1.40-6.50); %Basophils 0.4 % (0.0-1.0); %Lymphocytes 37.1 % (21.0-51.0); %Monocytes 11.4 % (0.0-10.0); Hematocrit 40.5 % (36.0-47.0); Hemoglobin 13.3 g/dL (12.0-16.0); Mean Corpuscular HGB CONC 32.8 g/dL (32.0-36.0); Mean Corpuscular Hemoglobin 29.1 pg (27.0-31.0); Mean Corpuscular Volume 88.6 fl (78.0-98.0); Mean Platelet Volume 9.7 fL (7.4-10.4); Platelet Count 311 10x3/uL (130-400); RBC Distribution Width 14.1 % (11.5-14.5); Red Blood Cell (RBC) Count 4.57 mill/uL (4.20-5.40); White Blood Cell (WBC) Count 7.4 10x3/uL (4.8-10.8)
[2023-06-21 06:36] LABS: Anion Gap 13 mmol/L (10-20); BUN (Urea Nitrogen) 7 mg/dL (7.0-18.7); Calc. Creatinine Clearance 117 mL/min (70-130); Calcium 9.4 mg/dL (7.8-10.44); Carbon Dioxide 22 mmol/L (22-29); Chloride 106 mmol/L (98-107); Estimated GFR 106; Glucose 85 mg/dL (70-105); Potassium 3.5 mmol/L (3.5-5.1); Sodium 137 mmol/L (136-145)
[2023-06-21] MEDS: Amlodipine 5 MG TAB PO SCH (09:17)
[2023-06-21] MEDS: levETIRAcetam 500 MG TAB PO SCH ×2 (09:17→19:37)
[2023-06-21] MEDS: Famotidine 20 MG TAB PO SCH (09:17)
[2023-06-21] MEDS ORDERED: Lorazepam 2 MG/ML VIAL SLOW IVP PRN (11:10)
[2023-06-21] MEDS ORDERED: levETIRAcetam 500 MG (5 mL) VIAL SLOW IVP SCH (11:15)
[2023-06-21] MEDS: Lorazepam 2 MG/ML VIAL SLOW IVP SCH (11:37)
[2023-06-21] MEDS: levETIRAcetam 500 MG (5 mL) VIAL SLOW IVP SCH (11:38)
[2023-06-21 11:45] LABS: ALT (SGPT) 15 U/L (8-55); AST (SGOT) 31 U/L (5-34); Albumin 4.7 g/dL (3.5-5.0); Alkaline Phosphatase 83 U/L (40-110); Anion Gap 13 mmol/L (10-20); BUN (Urea Nitrogen) 7 mg/dL (7.0-18.7); Bilirubin, Total 0.5 mg/dL (0.2-1.2); Calc. Creatinine Clearance 112 mL/min (70-130); Calcium 9.8 mg/dL (7.8-10.44); Carbon Dioxide 24 mmol/L (22-29); Chloride 104 mmol/L (98-107); Estimated GFR 102; Globulin 3.5 g/dL (2.4-3.5); Glucose 104 mg/dL (70-105); Potassium 3.6 mmol/L (3.5-5.1); Protein, Total 8.2 g/dL (6.0-8.3); Sodium 137 mmol/L (136-145)
[2023-06-21] MEDS ORDERED: levETIRAcetam 500 MG TAB PO SCH (21:00)
[2023-06-22 09:55] LABS: Complement-C3 177 mg/dL (83-193)
[2023-06-22 10:13] LABS: HBCM Index 0.09 S/CO (0-0.79); HBSAg Index 0.29 S/CO (0-0.99); Hep A IgM AB Non-Reactive S/CO (NonReactive); Hep A IgM S/CO 0.15 S/CO (0-0.79); Hep B Surf Ag Non-Reactive S/CO (NonReactive); Hep C IgG Ab Non-Reactive S/CO (NonReactive); Hep C Index 0.14 S/CO (0-0.79); Hepatitis B Core IgM Abs Non-Reactive S/CO (NonReactive)
[2023-06-22 17:10] LABS: Complement-C4 62 mg/dL (15-57)
[2023-06-22] MEDS: Metoprolol Tartrate 5 MG (5 mL) VIAL IVP SCH (17:52)
[2023-06-23] MEDS: levETIRAcetam 500 MG TAB PO SCH ×2 (09:29→09:31)
[2023-06-23 11:18] LABS: ANA Symphony (Qualitative) Negative (Negative); ANA Symphony (Quantitative) 0.2 Ratio (< 0.7 Negative)
[2023-06-23 11:58] VITALS: TEMP 98.6
[2023-06-23] MEDS: Losartan 25 MG TAB PO SCH (14:07)
[2023-06-23 16:08] VITALS: BP 151/108
[2023-06-23] MEDS ORDERED: levETIRAcetam 500 MG TAB PO SCH (21:00)
[2023-06-23] MEDS ORDERED: OXcarbazepine 150 MG TAB PO SCH (21:00)
[2023-06-24] MEDS ORDERED: Losartan 25 MG TAB PO SCH (09:00)
[2023-06-24 18:39] LABS: Cytoplasmic (C-ANCA) <1:20 titer (Neg:<1:20); Myeloperoxidase AutoAbs <0.2 units (0.0-0.9); Perinuclear (P-ANCA) <1:20 titer (Neg:<1:20); Proteinase-3 AutoAbs Less than 0.2 units (0.0-0.9)
== END 2023-06-23 17:15 | disposition home or self-care (01) | DRG 101 ==
LOC: ERS 17:44 → 2SW 20:10 → OBSVTOIN 06-22 08:33
PROVIDERS: ADMIT Student in an Organized Health Care Education/Training Program; ATTEND Internal Medicine
PROC: 4A10X4Z Monitoring of Central Nervous Electrical Activity, External Approach (ICD-10-PCS; principal; 2023-06-21)
PROC: 4A10X4Z Monitoring of Central Nervous Electrical Activity, External Approach (ICD-10-PCS; 2023-06-23)
DX: G40.909 Epilepsy, unspecified, not intractable, without status epilepticus (principal); I10 Essential (primary) hypertension; I77.6 Arteritis, unspecified; F17.210 Nicotine dependence, cigarettes, uncomplicated; Z88.8 Allergy status to other drugs, medicaments and biological substances; Z79.899 Other long term (current) drug therapy; Z11.52 Encounter for screening for COVID-19
CPT/HCPCS: 36415; 70551; 71045; 80048; 80053; 80074; 80177; 83516; 85025; 86037; 86038; 86140; 86160; 86225; 93005; 93010; 95711; 95816; 95819; 96365; 96375; 96376; G0378; J1953; J2060

== ENCOUNTER 2024-06-16 15:45 | Emergency (ER) | payer MEDICAID, SELFPAY | END 2024-06-16 17:50 | disposition home or self-care (01) | LOC: ERS 15:45 | DX: J20.8 Acute bronchitis due to other specified organisms (principal); F17.210 Nicotine dependence, cigarettes, uncomplicated; Z79.899 Other long term (current) drug therapy | CPT/HCPCS: 87428; 99283 ==

== ENCOUNTER 2025-01-12 15:49 | Emergency (ER) | payer OTHER ==
[2025-01-12] MEDS ORDERED: Ketorolac Tromethamine 30 MG (1 mL) VIAL ONE (16:42)
== END 2025-01-12 20:06 | disposition home or self-care (01) ==
LOC: ERS 15:49
DX: R07.89 Other chest pain (principal); I10 Essential (primary) hypertension; Z87.891 Personal history of nicotine dependence; Z79.899 Other long term (current) drug therapy
CPT/HCPCS: 71046; 93005; 96372; J1885

== ENCOUNTER 2025-02-25 19:11 | Emergency (ER) | payer OTHER ==
[2025-02-25 19:47] LABS: #Basophils Less than 0.03 10x3/uL (0.0-0.2); #Eosinophils 0.08 10x3/uL (0.0-0.7); #Monocytes 0.65 10x3/uL (0.11-0.59); #Neutrophils 3.85 10x3/uL (1.40-6.50); %Basophils 0.2 % (0.0-1.0); %Eosinophils 1.0 % (0.0-10.0); %Lymphocytes 42.6 % (21.0-51.0); %Monocytes 8.1 % (0.0-10.0); %Neutrophils 47.9 % (42.0-75.0); Hematocrit 37.9 % (36.0-47.0); Hemoglobin 12.6 g/dL (12.0-16.0); Mean Corpuscular Hemoglobin 29.9 pg (27.0-31.0); Mean Corpuscular Volume 90.0 fL (78.0-98.0); Platelet Count 369 10x3/uL (130-400); Red Blood Cell (RBC) Count 4.21 mill/uL (4.20-5.40); White Blood Cell (WBC) Count 8.05 10x3/uL (4.8-10.8)
[2025-02-25 19:57] LABS: BHCG - Serum Negative (NEGATIVE); Pregs Control Background? CLEAR/WHITE (CLR/WHITE); Pregs Control Bar Appear? YES (CONTROL BAR)
[2025-02-25 20:00] LABS: ALT (SGPT) 9 U/L (Less than 34); AST (SGOT) 28 U/L (11-34); Albumin 4.4 g/dL (3.1-4.5); Alkaline Phosphatase 57 U/L (40-110); Anion Gap 15 mmol/L (10-20); BUN (Urea Nitrogen) 8 mg/dL (7.0-18.7); Bilirubin, Total 0.1 mg/dL (0.3-1.2); Calc. Creatinine Clearance 0 mL/min (70-130); Calcium 9.4 mg/dL (7.8-10.44); Carbon Dioxide 24 mmol/L (22-29); Chloride 107 mmol/L (98-107); Globulin 3.1 g/dL (2.4-3.5); Glucose 116 mg/dL (70-105); Potassium 3.2 mmol/L (3.5-5.1); Sodium 143 mmol/L (136-145)
[2025-02-25 20:01] LABS: Acetaminophen Less than 10 mcg/mL (Less than 10); Salicylate Less than 8.0 mg/dL (Less than 8.0)
[2025-02-25] MEDS ORDERED: diphenhydrAMINE 50 MG/ML VIAL ONE (20:34)
[2025-02-25] MEDS ORDERED: Prochlorperazine 10 MG/2 ML VIAL ONE (20:34)
[2025-02-25] MEDS ORDERED: Ketorolac Tromethamine 30 MG (1 mL) VIAL ONE (20:34)
[2025-02-25] MEDS ORDERED: Acetaminophen 500 MG TAB ONE (20:34)
[2025-02-25 21:21] LABS: Bacteria/HPF None Seen HPF (None Seen); CAUTI Indications for Culture Alt mental st,lethar; Glucose, Urine (Dipstick) Normal (Negative); Leukocyte Negative Leu/uL (Negative); Protein, Urine (Dipstick) Negative (Neg-Trace); RBC/HPF 0-3 HPF (0-3); Specific Gravity, Urine 1.018 (1.002-1.036); WBC/HPF 0-3 HPF (0-3)
[2025-02-25 21:25] LABS: Urine Culture Reflex No No
[2025-02-25 21:27] LABS: Cocaine Metabolite Screen Negative (Negative); THC/Cannabinoid Screen PRELIM POSITIVE (Negative); Tricyclic Screen Negative (Negative)
== END 2025-02-25 22:32 | disposition home or self-care (01) ==
LOC: ERS 19:11
DX: R51.9 Headache, unspecified (principal); G40.909 Epilepsy, unspecified, not intractable, without status epilepticus; I10 Essential (primary) hypertension; F17.210 Nicotine dependence, cigarettes, uncomplicated; Z55.6 Problems related to health literacy; Z79.899 Other long term (current) drug therapy
CPT/HCPCS: 36415; 70450; 80053; 80177; 80306; 80307; 81001; 84703; 85025; 93005; J0780; J1200; J1885